=== PATIENT | female | born 1990 | race Caucasian/White ===

== ENCOUNTER 2016-04-23 15:23 | Inpatient (IN) | payer MEDICAID ==
--- NOTE | 2016-04-23 16:00 | L&D Flow Sheet ---
LD Flowsheet Datetime Report Generated by CPN: 04/23/2016 16:00 Datetime: 04/23/2016 15:49 Vital Signs NBP Sys/Jackie/Mean (mmHg): 128 (QS system process) : 66 (QS system process) : 91 (QS system process) Pulse: 88 (QS system process)
[2016-04-23 17:11] LABS: ABSOLUTE BASOPHILS # (AUTO) 0.1 10^3/uL (0.0-0.2); ABSOLUTE EOSINOPHILS # (AUTO) 0.1 10^3/uL (0.0-0.6); ABSOLUTE LYMPHOCYTES (AUTO) 1.5 10^3/uL (0.5-4.7); ABSOLUTE MONOCYTES (AUTO) 0.8 10^3/uL (0.1-1.4); ABSOLUTE NEUT (AUTO) 9.7 10^3/uL (1.7-8.2); BASOPHILS % (AUTO) 0.5 % (0-2); EOSINOPHILS % (AUTO) 0.7 % (0-6); HEMATOCRIT 34.8 % (36.0-47.0); HEMOGLOBIN 11.5 g/dL (12.0-15.5); HGB HCT DIFFERENCE -0.3; MEAN CORPUSCULAR HEMOGLOBIN 31.5 pg (27.0-33.4); MEAN CORPUSCULAR HGB CONC 33.1 g/dL (32.0-36.0); MEAN CORPUSCULAR VOLUME 95 fl (80-97); MONOCYTES % (AUTO) 6.9 % (3-13); RED BLOOD COUNT 3.65 10^6/uL (3.72-5.28); RED CELL DISTRIBUTION WIDTH 13.3 % (11.5-14.0); SEGMENTED NEUTROPHILS % (AUTO) 79.9 % (42-78); WHITE BLOOD COUNT 12.2 10^3/uL (4.0-10.5)
[2016-04-23] MEDS ORDERED: RINGERS SOLUTION,LACTATED 300 ML IV ONE (17:24)
[2016-04-23] MEDS ORDERED: DINOPROSTONE 10 MG VAGINAL INSERT.SR ONE (17:28)
[2016-04-23 17:38] LABS: APPEARANCE,URINE SLIGHTLY-CLOUDY; BILIRUBIN,URINE NEGATIVE (NEGATIVE); GLUCOSE, URINE NEGATIVE (NEGATIVE); KETONES,URINE 20 mg/dL (NEGATIVE); LEUKOCYTE ESTERASE,URINE LARGE (NEGATIVE); NITRITE,URINE NEGATIVE (NEGATIVE); PROTEIN,URINE NEGATIVE (NEGATIVE); URINE SPECIFIC GRAVITY 1.016; UROBILINOGEN,URINE NEGATIVE mg/dL (<2.0)
[2016-04-23 17:53] LABS: URINE BARBITURATES SCREEN NEGATIVE; URINE METHADONE SCREEN NEGATIVE; URINE OPIATES LOW NEGATIVE; URINE PHENCYCLIDINE SCREEN NEGATIVE
--- NOTE | 2016-04-23 18:01 | L&D Flow Sheet ---
LD Flowsheet Datetime Report Generated by CPN: 04/23/2016 18:00 Datetime: 04/23/2016 17:49 NBP Sys/Jackie/Mean (mmHg): 117 (QS system process) : 71 (QS system process) : 88 (QS system process) Pulse: 80 (QS system process) Datetime: 04/23/2016 17:30 Monitor Mode: External (Clif Baker RN) Frequency (min): 0 (Clif Baker RN) Resting Tone (Palpate): Relaxed (Clif Baker RN) Monitor Mode: External US (Clif Baker RN) FHR Baseline Rate : 130 (Clif Baker RN) Variability: Moderate 6-25 bpm (Clif Baker RN) Accelerations: 15X15 (Clif Baker RN) Decelerations: None (Clif Baker RN) Dilatation (cm): 2.0 (Clif Baker RN) Effacement (%): 50 (Clif aBker RN) Station: -1 (Clif Baker RN) Exam by: LARY De Guzman (Clif Baker, RN) Vaginal Bleeding: None (Clif Baker RN) Cervix, Consistency: Moderate (Clif Baker RN) Cervix, Position: Posterior (Clif Baker RN) Lie 'A': Longitudinal (Clif Baker RN) Cervical Ripening Agents: Cervidil (Clif Baker RN) IV/Blood Work: IV Infusing per Order (Clif Baker, RN) Procedures: Sterile Vag Exam (Clif Baker RN) Patient Position/Activity: Left Tilt; Semi-Fowlers (Clif Baker, LARY) Datetime: 04/23/2016 17:20 NBP Sys/Jackie/Mean (mmHg): 117 (QS system process) : 62 (QS system process) : 83 (QS system process) Pulse: 85 (QS system process) Datetime: 04/23/2016 17:00 Monitor Mode: External (Clif Baker, RN) Frequency (min): 0 (Clif Baker, RN) Resting Tone (Palpate): Relaxed (Clif Baker, RN) Monitor Mode: External US (Clif Baker, RN) FHR Baseline Rate : 130 (Clif Baker, RN) Variability: Moderate 6-25 bpm (Clif Baker, RN) Accelerations: 15X15 (Clif Baker, RN) Decelerations: None (Clif Baker, RN) IV/Blood Work: IV Infusing per Order (Clif Baker, RN) Patient Position/Activity: Left Tilt; Semi-Fowlers (Clif Baker, RN) Datetime: 04/23/2016 16:49 NBP Sys/Jackie/Mean (mmHg): 116 (QS system process) : 73 (QS system process) : 88 (QS system process) Pulse: 83 (QS system process) Datetime: 04/23/2016 16:40 I/O Interventions: Up to BR (Clif Baker, RN) Datetime: 04/23/2016 16:30 Monitor Mode: External (Clif Baker, RN) Frequency (min): 0 (Clif Baker RN) Resting Tone (Palpate): Relaxed (Clif Baker, RN) Monitor Mode: External US (Clif Baker, RN) FHR Baseline Rate : 120 (Clif Baker, RN) Variability: Moderate 6-25 bpm (Clif Baker, RN) Accelerations: 15X15 (Clif Baker, RN) Decelerations: None (Clif Baker, RN) Pain Presence: None/Denies (Clif Baker, RN) IV/Blood Work: IV Started; IV Bolus Started; New IV Bag Hung (Clif Baker, RN) Patient Position/Activity: Left Tilt; High Fowlers (Clif Baker, RN) Datetime: 04/23/2016 16:19 NBP Sys/Jackie/Mean (mmHg): 118 (QS system process) : 57 (QS system process) : 82 (QS system process) Pulse: 86 (QS system process) Datetime: 04/23/2016 16:00 Monitor Mode: External (Clif Baker RN) Frequency (min): 0 (Clif Baker RN) Resting Tone (Palpate): Relaxed (Clif Baker RN) Monitor Mode: External US (Clif Baker RN) FHR Baseline Rate : 130 (Clif Baker RN) Variability: Moderate 6-25 bpm (Clif Baker RN) Accelerations: 15X15 (Clif Baker RN) Decelerations: None (Clif Baker RN) Pain Scale: 0 (Clif Baker RN) Pain Presence: None/Denies (Clif Baker RN) Pain Relief Measures: Comfort Measures (Clif Baker RN) Vaginal Bleeding: None (Clif Baker RN) Level of Consciousness: Fully Conscious (Clif Baker RN) Headache: Denies (Clif Baker, RN) Nausea/Vomiting: Denies (Clif Baker, RN) RUQ Epigastric Pain: Denies (Clif Baker, RN) IV/Blood Work: Labs Drawn (Clif Baker RN) Patient Position/Activity: Left Tilt; Semi-Fowlers (Clif Baker, LARY) Comfort Measures: Family Support (Clif Baker RN) I/O Interventions: Clear Liquids Given (Clif Baker RN)
--- NOTE | 2016-04-23 20:00 | L&D Flow Sheet ---
LD Flowsheet Datetime Report Generated by CPN: 04/23/2016 20:00 Datetime: 04/23/2016 19:30 Monitor Mode: External; Palpation (Leticia Matt, RN) Frequency (min): 3-7 (Leticia Matt, RN) Quality: Mild (Leticia Matt, RN) Duration (sec): 50-120 (Leticia Matt, RN) Duration Criteria: Less than Two 120 Second Contractions (Leticia Matt, RN) Pattern: Normal: <= 5 Contractions in 10 Minutes (Leticia Matt, RN) Resting Tone (Palpate): Relaxed (Leticia Matt, RN) Monitor Mode: External US (Leticia Matt, RN) FHR Baseline Rate : 130 (Leticia Matt, RN) FHR Baseline Changes: No Baseline Change (Leticia Matt, RN) Variability: Moderate 6-25 bpm (Leticia Matt, RN) Accelerations: 15X15 (Leticia Matt, RN) Decelerations: None (Leticia Matt, RN) Datetime: 04/23/2016 19:20 NBP Sys/Jackie/Mean (mmHg): 119 (QS system process) : 62 (QS system process) : 84 (QS system process) Pulse: 86 (QS system process) Datetime: 04/23/2016 19:15 Level of Consciousness: Fully Conscious (Leticia Matt, RN) DTR's/Clonus: DTRs 2+; No Clonus (Leticia Matt, RN) Headache: Denies (Leticia Matt, RN) Breath Sounds, Left: Clear and Equal (Leticia Matt, RN) Breath Sounds, Right: Clear and Equal (Leticia Matt, RN) Nausea/Vomiting: Denies (Leticia Matt, RN) RUQ Epigastric Pain: Denies (Leticia Matt, RN) Datetime: 04/23/2016 19:00 Communication Comments: Report received Guillermina Baker RN and care assumed at this time (Leticia Matt, RN) Datetime: 04/23/2016 18:59 Monitor Mode: External (Clif Samuel, RN) Frequency (min): x1 (Clif Samuel, RN) Duration (sec): 60 (Clif Samuel, RN) Resting Tone (Palpate): Relaxed (Clif Samuel, RN) Monitor Mode: External US (Clif Samuel, RN) Variability: Moderate 6-25 bpm (Clif Samuel, RN) Accelerations: 15X15 (Clif Samuel, RN) Decelerations: None (Clif Samuel, RN) Communication: RN at Bedside; Report Given to @ Leticia Matt, RN (Clif Samuel, RN) Datetime: 04/23/2016 18:50 NBP Sys/Jackie/Mean (mmHg): 112 (QS system process) : 55 (QS system process) : 79 (QS system process) Pulse: 73 (QS system process) Datetime: 04/23/2016 18:39 Patient Position/Activity: Right Tilt; Semi-Fowlers (Christina Bellavance, RNC) Datetime: 04/23/2016 18:34 I/O Interventions: Up to BR (Christina Bellavance, RNC) Datetime: 04/23/2016 18:30 Monitor Mode: External (Christina Bellavance, RNC) Frequency (min): 0 (Christina Bellavance, RNC) Resting Tone (Palpate): Relaxed (Christina Bellavance, RNC) Monitor Mode: External US (Christina Bellavance, RNC) FHR Baseline Rate : 150 (Christina Bellavance, RNC) Variability: Moderate 6-25 bpm (Christina Bellavance, RNC) Accelerations: 15X15 (Christina Bellavance, RNC) Decelerations: None (Christina Bellavance, RNC) Patient Position/Activity: Left Tilt; Semi-Fowlers (Christina Bellavance, RNC) Datetime: 04/23/2016 18:19 NBP Sys/Jackie/Mean (mmHg): 117 (QS system process) : 71 (QS system process) : 90 (QS system process) Pulse: 82 (QS system process) Bedside Blood Glucose: 78 (QS system process) Datetime: 04/23/2016 18:00 Monitor Mode: External (Clif Baker RN) Frequency (min): 0 (Clif Baker RN) Resting Tone (Palpate): Relaxed (Clif Baker RN) Monitor Mode: External US (Clif Baker RN) FHR Baseline Rate : 120 (Clif Baker RN) Variability: Moderate 6-25 bpm (Clif Baker RN) Accelerations: 15X15 (Clif Baker RN) Decelerations: None (Clif Baker RN) Patient Position/Activity: Left Tilt; Semi-Fowlers (Clif Baker RN)
[2016-04-23] MEDS ORDERED: ZOLPIDEM TARTRATE 5 MG TABLET PO ONE (21:08)
[2016-04-23] MEDS ORDERED: ZOLPIDEM TARTRATE 5 MG TABLET ONE (21:09)
--- NOTE | 2016-04-23 22:01 | L&D Flow Sheet ---
LD Flowsheet Datetime Report Generated by CPN: 04/23/2016 22:00 Datetime: 04/23/2016 21:30 Monitor Mode: External (Leticia Matt, RN) Frequency (min): IREGG (Leticia Matt, RN) Quality: Mild (Leticia Matt, RN) Duration (sec): 40-90 (Leticia Matt, RN) Duration Criteria: Less than Two 120 Second Contractions (Leticia Matt, RN) Pattern: Normal: <= 5 Contractions in 10 Minutes (Leticia Matt, RN) Resting Tone (Palpate): Relaxed (Leitcia Matt, RN) Monitor Mode: External US (Leticia Matt, RN) FHR Baseline Rate : 120 (Leticia Matt, RN) Variability: Moderate 6-25 bpm (Leticia Matt, RN) Accelerations: 15X15 (Leticia Matt, RN) Decelerations: None (Leticia Matt, RN) Datetime: 04/23/2016 21:12 NBP Sys/Jackie/Mean (mmHg): 118 (QS system process) : 69 (QS system process) : 88 (QS system process) Pulse: 81 (QS system process) Pain Scale: 2 (Leticia Matt, RN) Pain Presence: Intermittent (Leticia Matt, RN) Pain Type: Contraction (Leticia Matt, RN) Pain Location: Abdomen (Elticia Matt, RN) Medication Comments: Ambien 10 mg PO x1 dose for sleep (Leticia Matt, RN) Datetime: 04/23/2016 21:00 Monitor Mode: External (Leticia Matt, RN) Frequency (min): 1-3 (Leticia Matt, RN) Quality: Mild (Leticia Matt, RN) Duration (sec): 40-90 (Leticia Matt, RN) Duration Criteria: Less than Two 120 Second Contractions (Leticia Matt, RN) Pattern: Normal: <= 5 Contractions in 10 Minutes (Leticia Matt, RN) Resting Tone (Palpate): Relaxed (Leticia Matt, RN) Monitor Mode: External US (Leticia Matt, RN) FHR Baseline Rate : 125 (Leticia Matt, RN) Variability: Moderate 6-25 bpm (Leticia Matt, RN) Accelerations: 15X15 (Leticia Matt, RN) Decelerations: None (Leticia Matt, RN) Datetime: 04/23/2016 20:40 Patient Care Comments: pt. denied any questions or concerns at this time (Leticia Matt, RN) Datetime: 04/23/2016 20:30 Monitor Mode: External; Palpation (Dacia Ring, RN) Frequency (min): 2-5 (Dacia Ring, RN) Quality: Mild (Dacia Ring, RN) Duration (sec): 40-120 (Dacia Ring, RN) Duration Criteria: Less than Two 120 Second Contractions (Dacia Ring, RN) Pattern: Normal: <= 5 Contractions in 10 Minutes (Dacia Ring, RN) Resting Tone (Palpate): Relaxed (Dacia Ring, RN) Monitor Mode: External US (Dacia Ring, RN) FHR Baseline Rate : 130 (Dacia Ring, RN) Variability: Moderate 6-25 bpm (Dacia Ring, RN) Accelerations: Prolonged (Dacia Ring, RN) Decelerations: None (Dacia Ring, RN) Datetime: 04/23/2016 20:22 I/O Interventions: Up to BR (Leticia Matt, RN) I/O Interventions: Up to BR (Dacia Ring, RN) Datetime: 04/23/2016 20:00 Monitor Mode: External; Palpation (Dacia Ring, RN) Frequency (min): 3-7 (Dacia Ring, RN) Quality: Mild (Dacia Ring, RN) Duration (sec): 50-120 (Dacia Ring, RN) Duration Criteria: Less than Two 120 Second Contractions (Dacia Ring, RN) Pattern: Normal: <= 5 Contractions in 10 Minutes (Dacia Ring, RN) Resting Tone (Palpate): Relaxed (Dacia Ring, RN) Monitor Mode: External US (Dacia Ring, RN) FHR Baseline Rate : 130 (Dacia Ring, RN) Variability: Moderate 6-25 bpm (Dacia Ring, RN) Accelerations: Prolonged (Dacia Ring, RN) Decelerations: None (Dacia Ring, RN)
[2016-04-23] MEDS: RINGERS SOLUTION,LACTATED 1,000 ML IV PRN (22:21)
[2016-04-24] MEDS ORDERED: PROMETHAZINE HCL INJ 25 MG/1 ML VIAL IV ONE (02:56)
[2016-04-24] MEDS ORDERED: NALBUPHINE HCL INJ 10 MG/1 ML AMPULE INJ ONE (02:56)
[2016-04-24] MEDS ORDERED: PROMETHAZINE HCL INJ 25 MG/1 ML VIAL ONE ×2 (03:01→18:50)
[2016-04-24] MEDS ORDERED: NALBUPHINE HCL INJ 10 MG/1 ML AMPULE ONE (03:02)
[2016-04-24] MEDS: DINOPROSTONE 10 MG VAGINAL INSERT.SR PV PRN ×3 (03:55→15:30)
[2016-04-24] MEDS ORDERED: OXYTOCIN/NORMAL SALINE 20 UNIT/1,000 ML RTUINJ ONE (05:52)
[2016-04-24] MEDS ORDERED: OXYTOCIN/NORMAL SALINE 20 UNIT/1,000 ML RTUINJ IV PRN (06:43)
--- NOTE | 2016-04-24 08:01 | L&D Flow Sheet ---
LD Flowsheet Datetime Report Generated by CPN: 04/24/2016 08:00 Datetime: 04/24/2016 07:59 NBP Sys/Jackie/Mean (mmHg): 115 (QS system process) : 58 (QS system process) : 83 (QS system process) Pulse: 82 (QS system process) LaborFlag: Antepartum (QS system process) Datetime: 04/24/2016 07:47 Respirations: 16 (Sagrario Anderson RN) Temperature (F): 98.4 (Sagrario Anderson RN) Temperature (C): 36.9 (QS system process) LaborFlag: Antepartum (QS system process) Datetime: 04/24/2016 07:46 Patient Care Comments: repositioned to right lateral (Sagrario Anderson RN) Datetime: 04/24/2016 07:45 NBP Sys/Jackie/Mean (mmHg): 125 (QS system process) : 57 (QS system process) : 82 (QS system process) Pulse: 94 (QS system process) Monitor Mode: External; Palpation (Sagrario Anderson RN) Frequency (min): 1.5-4 (Sagrario Anderson RN) Quality: Mild/Moderate (Sagrario Anderson RN) Duration (sec): 60-100 (Sagrario Anderson RN) Duration Criteria: Less than Two 120 Second Contractions (Sagrario Anderson RN) Pattern: Normal: <= 5 Contractions in 10 Minutes (Sagrario Anderson RN) Resting Tone (Palpate): Relaxed (Sagrario Anderson RN) Monitor Mode: External US (Sagrario Anderson RN) FHR Baseline Rate : 130 (Sagrario Baidy, RN) Variability: Moderate 6-25 bpm (Sagrario Baidy, RN) Accelerations: 15X15 (Sagrario Baidy, RN) Decelerations: Late (Sagrario Anderson, RN) Pitocin (milliunit): Pitocin Remains (milliunits) @ 2 (Sagrario Anderson, RN) LaborFlag: Antepartum (QS system process) Datetime: 04/24/2016 07:30 Monitor Mode: External; Palpation (Sagrario Anderson RN) Frequency (min): 2-3 (Sagrario Anderson, RN) Quality: Mild/Moderate (Sagrario Anderson, RN) Duration (sec): 60-100 (Sagrario Anderson, RN) Duration Criteria: Less than Two 120 Second Contractions (Sagrario Anderson, RN) Pattern: Normal: <= 5 Contractions in 10 Minutes (Sagrario Anderson, RN) Resting Tone (Palpate): Relaxed (Sagrario Anderson, RN) Monitor Mode: External US (Sagrario Anderson, RN) FHR Baseline Rate : 125 (Sagrario Anderson, RN) Variability: Moderate 6-25 bpm (Sagrario Baidy, RN) Accelerations: 15X15 (Sagrario Baidy, RN) Decelerations: None (Sagrario Anderson, RN) Pitocin (milliunit): Pitocin Started (milliunits) @ 2 (Sagrario Baiadiel, RN) Datetime: 04/24/2016 07:29 NBP Sys/Jackie/Mean (mmHg): 115 (QS system process) : 60 (QS system process) : 80 (QS system process) Pulse: 74 (QS system process) LaborFlag: Antepartum (QS system process) Datetime: 04/24/2016 07:20 Monitor Mode: External; Palpation (Leticia Matt, RN) Frequency (min): 2-4 (Leticia Matt, RN) Quality: Mild/Moderate (Leticia Matt, RN) Duration (sec): 60-90 (Leticia Matt, RN) Duration Criteria: Less than Two 120 Second Contractions (Leticia Matt, RN) Pattern: Normal: <= 5 Contractions in 10 Minutes (Leticia Matt, RN) Resting Tone (Palpate): Relaxed (Leticia Matt, RN) Datetime: 04/24/2016 07:16 Monitor Interventions for UA: [place] Adjusted (Sagrario Baidy, RN) Datetime: 04/24/2016 07:14 Level of Consciousness: Fully Conscious (Sagrario Baidy, RN) DTR's/Clonus: DTRs 2+; No Clonus (Sagrario Baidy, RN) Headache: Denies (Sagrario Baidy, RN) Breath Sounds, Left: Clear and Equal (Sagrario Baidy, RN) Breath Sounds, Right: Clear and Equal (Sagrario Baidy, RN) Nausea/Vomiting: Denies (Sagrario Baidy, RN) RUQ Epigastric Pain: Denies (Sagrario Baidy, RN) Datetime: 04/24/2016 07:10 Communication Comments: Report passed to BBro Anderson, RN and care relinquished at this time (Leticia Matt, RN) Datetime: 04/24/2016 06:59 NBP Sys/Jackie/Mean (mmHg): 112 (QS system process) : 71 (QS system process) : 86 (QS system process) Pulse: 76 (QS system process) LaborFlag: Antepartum (QS system process) Datetime: 04/24/2016 06:57 Patient Care Comments: all pt. questions and concerns answered at this time (Leticia Matt, RN) Datetime: 04/24/2016 06:31 NBP Sys/Jackie/Mean (mmHg): 118 (QS system process) : 70 (QS system process) : 88 (QS system process) Pulse: 76 (QS system process) Temperature (F): 98.2 (Leticia Rodriguezco, RN) Temperature (C): 36.8 (QS system process) Temperature Route: Oral (Leticia Gutierrez, RN) Pain Scale: 1 (Leticia Matt, RN) Pain Presence: Intermittent (Leticia Rodriguezco, RN) Pain Type: Cramping (Leticia Matt, RN) Pain Location: Abdomen (Leticia Rodriguezco, RN) LaborFlag: Antepartum (QS system process) Datetime: 04/24/2016 06:00 Bedside Blood Glucose: 81 (QS system process) LaborFlag: Antepartum (QS system process) Datetime: 04/24/2016 05:40 Pain Assessment Comments: Towels, toiletries, and gown provided along with a light breakfast (Leticia Gutierrez, RN) LaborFlag: Antepartum (QS system process) Datetime: 04/24/2016 05:35 Monitor Mode: External (Leticia Matt, RN) Frequency (min): x2 (Leticia Matt, RN) Quality: Mild/Moderate (Leticia Matt, RN) Duration (sec): 50-110 (Leticia Matt, RN) Duration Criteria: Less than Two 120 Second Contractions (Leticia Matt, RN) Pattern: Normal: <= 5 Contractions in 10 Minutes (Leticia Matt, RN) Resting Tone (Palpate): Relaxed (Leticia Matt, RN) Monitor Mode: External US (Leticia Matt, RN) FHR Baseline Rate : 120 (Leticia Matt, RN) Variability: Moderate 6-25 bpm (Leticia Matt, RN) Accelerations: 15X15 (Leticia Matt, RN) Decelerations: None (Leticia Matt, RN) Pain Scale: 2 (Leticia Matt, RN) Pain Presence: Intermittent (Leticia Matt, RN) Pain Type: Contraction (Leticia Matt, RN) Pain Location: Abdomen (Leticia Matt, RN) Pain Assessment Comments: pt. states her pain has decreased after medication, denies any needs at this time. Montiors turned off at this time for pt. to shower and eat a light breakfast per MD order (Leticia Matt, RN) LaborFlag: Antepartum (QS system process) Datetime: 04/24/2016 05:34 Medication Comments: cervidil removed (Leticia Matt, RN) Datetime: 04/24/2016 05:30 Monitor Mode: External (Leticia Matt, RN) Frequency (min): 1.5-7 (Leticia Matt, RN) Quality: Mild/Moderate (Leticia Matt, RN) Duration (sec): 40-90 (Leticia Matt, RN) Duration Criteria: Less than Two 120 Second Contractions (Leticia Matt, RN) Pattern: Normal: <= 5 Contractions in 10 Minutes (Leticia Matt, RN) Resting Tone (Palpate): Relaxed (Leticia Matt, RN) Monitor Mode: External US (Leticia Matt, RN) FHR Baseline Rate : 115 (Lteicia Matt, RN) Variability: Moderate 6-25 bpm (Leticia Matt, RN) Accelerations: 10X10 (Leticia Matt, RN) Decelerations: None (Leticia Matt, RN) Datetime: 04/24/2016 05:19 I/O Interventions: Up to BR (Leticia Matt, RN) Datetime: 04/24/2016 05:00 Monitor Mode: External (Leticia Matt, RN) Frequency (min): 1.5-4 (Leticia Matt, RN) Quality: Mild/Moderate (Leticia Matt, RN) Duration (sec): 50-90 (Leticia Matt, RN) Duration Criteria: Less than Two 120 Second Contractions (Leticia Matt, RN) Pattern: Normal: <= 5 Contractions in 10 Minutes (Leticia Matt, RN) Resting Tone (Palpate): Relaxed (Leticia Matt, RN) Monitor Mode: External US (Leticia Matt, RN) FHR Baseline Rate : 115 (Leticia Matt, RN) Variability: Moderate 6-25 bpm (Leticia Matt, RN) Accelerations: 15X15 (Leticia Matt, RN) Decelerations: None (Leticia Matt, RN) Datetime: 04/24/2016 04:30 Monitor Mode: External (Leticia Matt, RN) Frequency (min): IREGG (Leticia Matt, RN) Quality: Mild/Moderate (Leticia Matt, RN) Duration (sec): 50-60 (Leticia Matt, RN) Duration Criteria: Less than Two 120 Second Contractions (Leticia Matt, RN) Pattern: Normal: <= 5 Contractions in 10 Minutes (Leticia Matt, RN) Resting Tone (Palpate): Relaxed (Leticia Matt, RN) Contraction Comments: irritability noted (Leticia Matt, RN) Monitor Mode: External US (Leticia Matt, RN) FHR Baseline Rate : 115 (Leticia Matt, RN) Variability: Moderate 6-25 bpm (Leticia Matt, RN) Accelerations: None (Leticia Matt, RN) Decelerations: None (Leticia Matt, RN) Datetime: 04/24/2016 04:00 Monitor Mode: External (Leticia Matt, RN) Frequency (min): 1.5-8 (Leticia Matt, RN) Quality: Mild/Moderate (Leticia Matt, RN) Duration (sec): 30-60 (Leticia Matt, RN) Duration Criteria: Less than Two 120 Second Contractions (Leticia Matt, RN) Pattern: Normal: <= 5 Contractions in 10 Minutes (Leticia Matt, RN) Resting Tone (Palpate): Relaxed (Leticia Matt, RN) Monitor Mode: External US (Leticia Matt, RN) FHR Baseline Rate : 115 (Leticia Matt, RN) Variability: Moderate 6-25 bpm (Leticia Matt, RN) Accelerations: None (Leticia Matt, RN) Decelerations: None (Leticia Matt, RN) Datetime: 04/24/2016 03:51 I/O Interventions: Up to BR (Leticia Matt, RN) Datetime: 04/24/2016 03:32 Pain Coping: Sleeping (Leticia Matt, RN) Datetime: 04/24/2016 03:30 Monitor Mode: External (Leticia Matt, RN) Quality: Mild/Moderate (Leticia Matt, RN) Pattern: Normal: <= 5 Contractions in 10 Minutes (Leticia Matt, RN) Contraction Comments: unable to determine, toco adjusted (Leticia Matt, RN) Monitor Mode: External US (Leticia Matt, RN) FHR Baseline Rate : 120 (Leticia Matt, RN) Variability: Moderate 6-25 bpm (Leticia Matt, RN) Accelerations: 15X15 (Leticia Matt, RN) Decelerations: None (Leticia Matt, RN) Datetime: 04/24/2016 03:29 Monitor Interventions for UA: [place] Adjusted (Leticia Matt, RN) Datetime: 04/24/2016 03:14 Monitor Interventions for UA: [place] Adjusted (Leticia Matt, RN) Datetime: 04/24/2016 03:08 Analgesics/Sedatives: Nubain (mg) @ 10; Phenergan (mg) @ 12.5 (Leticia Matt, RN) Datetime: 04/24/2016 03:00 Monitor Mode: External; Palpation (Leticia Matt, RN) Frequency (min): 1.5-3 (Leticia Matt, RN) Quality: Mild/Moderate (Leticia Matt, RN) Duration (sec): 50-80 (Leticia Matt, RN) Duration Criteria: Less than Two 120 Second Contractions (Leticia Matt, RN) Pattern: Normal: <= 5 Contractions in 10 Minutes (Leticia Matt, RN) Resting Tone (Palpate): Relaxed (Leticia Matt, RN) Monitor Mode: External US (Leticia Matt, RN) FHR Baseline Rate : 120 (Leticia Matt, RN) Variability: Moderate 6-25 bpm (Leticia Matt, RN) Accelerations: 15X15 (Leticia Matt, RN) Decelerations: None (Leticia Matt, RN) Datetime: 04/24/2016 02:56 Communication Comments: Dr. Gold called and notified of pt. SVE and request for IV pain medication. New orders received for Nubain 10 mg IV push x1 dose and phernergan 12.5 mg IV push x1 at this time. If pt. not in active labor when cervidil comes out, pt. may shower and have a light breakfast (Leticia Matt, RN) Datetime: 04/24/2016 02:55 Monitor Interventions for UA: [place] Adjusted (Leticia Matt, RN) Datetime: 04/24/2016 02:54 Dilatation (cm): 2.5 (Leticia Matt, RN) Effacement (%): 70 (Leticia Gutierrez, RN) Station: -1 (Leticia Gutierrez, LARY) Exam by: Hayden Gutierrez RN (Leticia Gutierrez RN) Vaginal Bleeding: None (Leticia Gutierrez, RN) Cervix, Consistency: Soft (Leticia Gutierrez, RN) Cervix, Position: Posterior (Leticia Gutierrez, RN) Datetime: 04/24/2016 02:50 Pain Scale: 4 (Leticia Gutierrez RN) Pain Presence: Intermittent (Leticia Gutierrez RN) Pain Type: Contraction (Leticia Gutierrez, RN) Pain Location: Abdomen (Leticia Gutierrez RN) Pain Coping: Requesting Pain Medication or Epidural (Leticia Gutierrez RN) Patient Position/Activity: Right Lateral (Leticia Gutierrez, RN) LaborFlag: Antepartum (QS system process) Datetime: 04/24/2016 02:30 Monitor Mode: External (Leticia Gutierrez RN) Frequency (min): IREGG (Leticia Matt, RN) Quality: Mild/Moderate (Leticia Matt, RN) Duration (sec): 40-70 (Leticia Matt, RN) Duration Criteria: Less than Two 120 Second Contractions (Leticia Matt, RN) Pattern: Tachysystole: > 5 Contractions in 10 Minutes (Leticia Matt, RN) Resting Tone (Palpate): Relaxed (Leticia Matt, RN) Monitor Mode: External US (Leticia Matt, RN) FHR Baseline Rate : 120 (Leticia Matt, RN) Variability: Moderate 6-25 bpm (Leticia Matt, RN) Accelerations: 15X15 (Leticia Matt, RN) Decelerations: None (Leticia Matt, RN) Datetime: 04/24/2016 02:24 Monitor Interventions for FHR: Ultrasound Adjusted (Leticia Matt, RN) Datetime: 04/24/2016 02:23 Monitor Interventions for FHR: Ultrasound Adjusted (Leticia Matt, RN) Comments: RN at bedside (Leticia Matt, RN) Datetime: 04/24/2016 02:00 Monitor Mode: External (Leticia Matt, RN) Frequency (min): 1.5-3 (Leticia Matt, RN) Quality: Mild/Moderate (Leticia Matt, RN) Duration (sec): 40-70 (Leticia Matt, RN) Duration Criteria: Less than Two 120 Second Contractions (Leticia Matt, RN) Pattern: Normal: <= 5 Contractions in 10 Minutes (Leticia Matt, RN) Resting Tone (Palpate): Relaxed (Leticia Matt, RN) Monitor Mode: External US (Leticia Matt, RN) FHR Baseline Rate : 125 (Leticia Matt, RN) Variability: Moderate 6-25 bpm (Leticia Matt, RN) Accelerations: 15X15 (Leticia Matt, RN) Decelerations: None (Leticia Matt, RN) Datetime: 04/24/2016 01:57 Patient Position/Activity: Left Lateral (Leticia Matt, RN) Datetime: 04/24/2016 01:48 Pain Scale: 3 (Leticia Matt, RN) Pain Presence: Intermittent (Leticia Matt, RN) Pain Type: Contraction (Leticia Matt, RN) Pain Location: Abdomen (Leticia Matt, RN) Pain Assessment Comments: pt. able to talk through ctn's, states her pain is getting worse (Leticia Matt, RN) I/O Interventions: Up to BR (Leticia Matt, RN) LaborFlag: Antepartum (QS system process) Datetime: 04/24/2016 01:42 Monitor Interventions for FHR: Ultrasound Adjusted (Leticia Matt, RN) Datetime: 04/24/2016 01:30 Monitor Mode: External; Palpation (Leticia Matt, RN) Frequency (min): IREGG (Leticia Matt, RN) Quality: Mild/Moderate (Leticia Matt, RN) Duration (sec): 40-90 (Leticia Matt, RN) Duration Criteria: Less than Two 120 Second Contractions (Leticia Matt, RN) Pattern: Normal: <= 5 Contractions in 10 Minutes (Leticia Matt, RN) Resting Tone (Palpate): Relaxed (Leticia Matt, RN) Monitor Mode: External US (Leticia Matt, RN) FHR Baseline Rate : 125 (Leticia Matt, RN) Variability: Moderate 6-25 bpm (Leticia Matt, RN) Accelerations: 15X15 (Leticia Matt, RN) Decelerations: None (Leticia Matt, RN) Datetime: 04/24/2016 01:00 Monitor Mode: External (Leticia Matt, RN) Frequency (min): IREGG (Leticia Matt, RN) Quality: Mild (Leticia Matt, RN) Duration (sec): 30-60 (Leticia Matt, RN) Duration Criteria: Less than Two 120 Second Contractions (Leticia Matt, RN) Pattern: Normal: <= 5 Contractions in 10 Minutes (Leticia Matt, RN) Resting Tone (Palpate): Relaxed (Leticia Matt, RN) Monitor Mode: External US (Leticia Matt, RN) FHR Baseline Rate : 125 (Leticia Matt, RN) Variability: Moderate 6-25 bpm (Leticia Matt, RN) Accelerations: 15X15 (Leticia Matt, RN) Decelerations: None (Leticia Matt, RN) Datetime: 04/24/2016 00:33 Patient Care Comments: pt. denies needs at this time (Leticia Matt, RN) Datetime: 04/24/2016 00:30 Monitor Mode: External (Leticia Matt, RN) Frequency (min): 1.5-2 (Leticia Matt, RN) Quality: Mild (Leticia Matt, RN) Duration (sec): 50-90 (Leticia Matt, RN) Duration Criteria: Less than Two 120 Second Contractions (Leticia Matt, RN) Pattern: Normal: <= 5 Contractions in 10 Minutes (Leticia Matt, RN) Resting Tone (Palpate): Relaxed (Leticia Matt, RN) Monitor Mode: External US (Leticia Matt, RN) FHR Baseline Rate : 125 (Leticia Matt, RN) Variability: Moderate 6-25 bpm (Leticia Matt, RN) Accelerations: 15X15 (Leticia Matt, RN) Decelerations: None (Leticia Matt, RN) I/O Interventions: Up to BR (Leticia Matt, RN) Datetime: 04/24/2016 00:00 Monitor Mode: External (Leticia Matt, RN) Quality: Mild (Leticia Matt, RN) Duration Criteria: Less than Two 120 Second Contractions (Leticia Matt, RN) Pattern: Normal: <= 5 Contractions in 10 Minutes (Leticia Matt, RN) Resting Tone (Palpate): Relaxed (Leticia Matt, RN) Contraction Comments: irritability noted (Leticia Matt, RN) Monitor Mode: External US (Leticia Matt, RN) FHR Baseline Rate : 125 (Leticia Matt, RN) Variability: Moderate 6-25 bpm (Leticia Matt, RN) Accelerations: 15X15 (Leticia Matt, RN) Decelerations: None (Leticia Matt, RN) Datetime: 04/23/2016 23:47 Monitor Interventions for FHR: Ultrasound Adjusted (Leticia Matt, RN) Datetime: 04/23/2016 23:41 Patient Position/Activity: Left Lateral (Leticia Matt, RN) Datetime: 04/23/2016 23:30 Monitor Mode: External (Leticia Matt, RN) Frequency (min): 1.5-4 (Leticia Matt, RN) Quality: Mild (Leticia Matt, RN) Duration (sec): 40-70 (Leticia Matt, RN) Duration Criteria: Less than Two 120 Second Contractions (Leticia Matt, RN) Pattern: Normal: <= 5 Contractions in 10 Minutes (Leticia Matt, RN) Resting Tone (Palpate): Relaxed (Leticia Matt, RN) Monitor Mode: External US (Leticia Matt, RN) FHR Baseline Rate : 125 (Leticia Matt, RN) Variability: Moderate 6-25 bpm (Leticia Matt, RN) Accelerations: 15X15 (Leticia Matt, RN) Decelerations: None (Leticia Matt, RN) Datetime: 04/23/2016 23:00 Monitor Mode: External (Leticia Matt, RN) Frequency (min): 3-6 (Leticia Matt, RN) Quality: Mild (Leticia Matt, RN) Duration (sec): 50-70 (Leticia Matt, RN) Duration Criteria: Less than Two 120 Second Contractions (Leticia Matt, RN) Pattern: Normal: <= 5 Contractions in 10 Minutes (Leticia Matt, RN) Resting Tone (Palpate): Relaxed (Leticia Matt, RN) Monitor Mode: External US (Leticia Matt, RN) FHR Baseline Rate : 120 (Leticia Matt, RN) Variability: Moderate 6-25 bpm (Leticia Matt, RN) Accelerations: 15X15 (Leticia Matt, RN) Decelerations: None (Leticia Matt, RN) Datetime: 04/23/2016 22:38 Monitor Interventions for FHR: Ultrasound Adjusted (Leticia Matt, RN) Datetime: 04/23/2016 22:35 Monitor Interventions for FHR: Ultrasound Adjusted (Leticia Matt, RN) Comments: RN at bedside (Leticia Matt, RN) Datetime: 04/23/2016 22:30 Monitor Mode: External (Leticia Matt, RN) Frequency (min): 1.5-3 (Leticia Matt, RN) Quality: Mild (Leticia Matt, RN) Duration (sec): 40-80 (Leticia Matt, RN) Duration Criteria: Less than Two 120 Second Contractions (Leticia Matt, RN) Pattern: Normal: <= 5 Contractions in 10 Minutes (Leticia Matt, RN) Resting Tone (Palpate): Relaxed (Leticia Matt, RN) Monitor Mode: External US (Leticia Matt, RN) FHR Baseline Rate : 125 (Leticia Matt, RN) Variability: Moderate 6-25 bpm (Leticia Matt, RN) Accelerations: 15X15 (Leticia Matt, RN) Decelerations: None (Leticia Matt, RN) Datetime: 04/23/2016 22:21 IV/Blood Work: IV Infusing per Order; New IV Bag Hung (Leticia Gutierrez RN) Patient Care Comments: LR to 125 ml/hr (Leticia Gutierrez, LARY) Datetime: 04/23/2016 22:17 Pain Scale: 3 (Leticia Gutierrez RN) Pain Presence: Intermittent (Leticia Gutierrez RN) Pain Type: Contraction (Leticia Gutierrez RN) Pain Location: Back (Leticia Gutierrez RN) Pain Assessment Comments: hot pack provided (Leticia Gutierrez RN) I/O Interventions: Up to BR (Leticia Gutierrez RN) LaborFlag: Antepartum (QS system process) Datetime: 04/23/2016 22:00 Monitor Mode: External (Leticia Matt, RN) Frequency (min): 2-4 (Leticia Matt, RN) Quality: Mild (Leticia Matt, RN) Duration (sec): 40-70 (Leticia Matt, RN) Duration Criteria: Less than Two 120 Second Contractions (Leticia Matt, RN) Pattern: Normal: <= 5 Contractions in 10 Minutes (Leticia Matt, RN) Resting Tone (Palpate): Relaxed (Leticia Matt, RN) Contraction Comments: irritability noted (Leticia Matt, RN) Monitor Mode: External US (Leticia Matt, RN) FHR Baseline Rate : 125 (Leticia Matt, RN) Variability: Moderate 6-25 bpm (Leticia Matt, RN) Accelerations: 15X15 (Leticia Matt, RN) Decelerations: None (Leticia Matt, RN)
--- NOTE | 2016-04-24 08:42 | L&D Progress Notes ---
PROGRESS NOTES Datetime Report Generated by CPN: 04/24/2016 08:42 PROGRESS NOTE Procedures: Artificial ROM Plan: Continue Present Management Comment: if inadequate ctx pattern will resume pit, epidural when desires [place] Amniotic Fluid Color: Clear FETUS A Monitoring: External US FHR Comments: had late decel intermittently on pit 2 mu now cat 1 with pit off : 40.6 SIGNATURE SIGNATURE: [id number] Signature: with User ID: [email or web address]
[2016-04-24] MEDS ORDERED: BUPIVACAINE HCL 0.25 % INJ/PF (2.5 MG/1 ML) 30 ML VIAL INFIL ONE (09:02)
[2016-04-24] MEDS ORDERED: FENTANYL CITRATE INJ/PF 100 MCG/2 ML AMPUL ONE (09:11)
[2016-04-24] MEDS ORDERED: EPHEDRINE SULFATE INJ 50 MG/1 ML AMPULE ONE (09:11)
[2016-04-24] MEDS ORDERED: PHENYLEPHRINE HCL INJ/PF 10 MG/1 ML SDV ONE (09:12)
[2016-04-24] MEDS ORDERED: FENTANYL/BUPIVACAINE/NS/PF 200 MCG/100 ML RTUINJ EPI ONE (09:12)
[2016-04-24] MEDS ORDERED: BUPIVACAINE HCL 0.25 % INJ/PF (2.5 MG/1 ML) 30 ML VIAL ONE (09:12)
[2016-04-24] MEDS: RINGERS SOLUTION,LACTATED 1,000 ML IV PRN ×2 (09:17→11:14)
--- NOTE | 2016-04-24 10:01 | L&D Flow Sheet ---
LD Flowsheet Datetime Report Generated by CPN: 04/24/2016 10:00 Datetime: 04/24/2016 09:59 Pulse: 98 (QS system process) SpO2 (%): 89 (QS system process) LaborFlag: Antepartum (QS system process) Datetime: 04/24/2016 09:58 NBP Sys/Jackie/Mean (mmHg): 130 (QS system process) : 60 (QS system process) : 73 (QS system process) Pulse: 101 (QS system process) LaborFlag: Antepartum (QS system process) Datetime: 04/24/2016 09:57 Pulse: 94 (QS system process) SpO2 (%): 98 (QS system process) Epidural Procedure: Loading Dose (Sagrario Anderson, RN) LaborFlag: Antepartum (QS system process) Datetime: 04/24/2016 09:56 NBP Sys/Jackie/Mean (mmHg): 133 (QS system process) : 63 (QS system process) : 91 (QS system process) Pulse: 83 (QS system process) Epidural Procedure: Cath Placed (Sagrario Anderson, RN) Epidural Procedure: Test Dose (Sagrario Anderson, RN) LaborFlag: Antepartum (QS system process) Datetime: 04/24/2016 09:52 Pulse: 89 (QS system process) SpO2 (%): 98 (QS system process) LaborFlag: Antepartum (QS system process) Datetime: 04/24/2016 09:47 Pulse: 92 (QS system process) SpO2 (%): 97 (QS system process) LaborFlag: Antepartum (QS system process) Datetime: 04/24/2016 09:44 NBP Sys/Jackie/Mean (mmHg): 131 (QS system process) : 85 (QS system process) : 105 (QS system process) Pulse: 85 (QS system process) LaborFlag: Antepartum (QS system process) Datetime: 04/24/2016 09:42 Pulse: 100 (QS system process) SpO2 (%): 98 (QS system process) Epidural Positioning: Sitting (Sagrario Adnerson RN) LaborFlag: Antepartum (QS system process) Datetime: 04/24/2016 09:25 IV/Blood Work: New IV Bag Hung (Sagrario Anderson RN) Datetime: 04/24/2016 09:15 Monitor Mode: External; Palpation (Sagrario Anderson RN) Frequency (min): 3-5 (Sagrario Anderson RN) Quality: Moderate (Sagrario Anderson RN) Duration (sec): 70-140 (Sagrario Anderson RN) Duration Criteria: More than Two 120 Second or Greater Contractions (Sagrario Anderson RN) Pattern: Normal: <= 5 Contractions in 10 Minutes (Sagrario Anderson, RN) Resting Tone (Palpate): Relaxed (Sagrario Anderson, RN) Monitor Mode: External US (Sagrario Anderson RN) FHR Baseline Rate : 125 (Sagrario Anderson RN) Variability: Moderate 6-25 bpm (Sagrario Anderson, RN) Accelerations: None (Sagrario Anderson, RN) Decelerations: None (Sagrario Anderson, RN) Datetime: 04/24/2016 09:14 NBP Sys/Jackie/Mean (mmHg): 122 (QS system process) : 76 (QS system process) : 91 (QS system process) Pulse: 81 (QS system process) LaborFlag: Antepartum (QS system process) Datetime: 04/24/2016 09:00 Monitor Mode: External; Palpation (Sagrario Anderson RN) Frequency (min): 2-3 (Sagrario Anderson, RN) Quality: Moderate (Sagrario Anderson, RN) Duration (sec): 60-120 (Sagrario Anderson RN) Duration Criteria: More than Two 120 Second or Greater Contractions (Sagrario Anderson RN) Pattern: Normal: <= 5 Contractions in 10 Minutes (Sagrario Anderson RN) Resting Tone (Palpate): Relaxed (Sagrario Anderson RN) Monitor Mode: External US (Sagrario Anderson RN) FHR Baseline Rate : 125 (Sagrario Anderson RN) Variability: Moderate 6-25 bpm (Sagrario Anderson RN) Accelerations: None (Sagrario Anderson RN) Decelerations: None (Sagrario Anderson RN) Datetime: 04/24/2016 08:59 NBP Sys/Jackie/Mean (mmHg): 125 (QS system process) : 88 (QS system process) : 103 (QS system process) Pulse: 85 (QS system process) Patient Care Comments: pt requesting epidural, IV bolus started. (Sagrario Anderson RN) LaborFlag: Antepartum (QS system process) Datetime: 04/24/2016 08:58 Pain Scale: 5 (Sagrario Anderson RN) Pain Presence: Intermittent (Sagrario Anderson RN) Pain Type: Contraction (Sagrario Anderson RN) Pain Location: Abdomen (Sagrario Baidy, RN) LaborFlag: Antepartum (QS system process) Datetime: 04/24/2016 08:45 Monitor Mode: External; Palpation (Sagrario Anderson, RN) Frequency (min): 1.5-3 (Sagrario Anderson, RN) Quality: Mild/Moderate (Sagrario Baiadiel, RN) Duration (sec): 60-90 (Sagrario Justin, RN) Duration Criteria: Less than Two 120 Second Contractions (Sagrario Anderson, RN) Pattern: Normal: <= 5 Contractions in 10 Minutes (Sagrario Anderson, RN) Resting Tone (Palpate): Relaxed (Sagrario Baiadiel, RN) Monitor Mode: External US (Sagrario Anderson, RN) FHR Baseline Rate : 125 (Sagrario Anderson, RN) FHR Baseline Changes: Return to Previous Baseline (Sagrario Baiadiel, RN) Variability: Minimal - Undetectable to <=5 bpm (Sagrario Baidy, RN) Accelerations: 15X15 (Sagrario Baidy, RN) Decelerations: None (Sagrario Anderson, RN) Datetime: 04/24/2016 08:37 Monitor Interventions for UA: [place] Adjusted (Sagrario Anderson RN) Patient Position/Activity: Tailors (Sagrario Anderson RN) Datetime: 04/24/2016 08:36 Communication Comments: Orders received for epidural prn for pain. (Sagrario Anderson RN) Datetime: 04/24/2016 08:34 Dilatation (cm): 3.5 (Sagrario Anderson RN) Effacement (%): 90 (Sagrario Anderson RN) Station: 0 (Sagrario Anderson RN) Exam by: Dr Marques (Sagrario Anderson RN) Membrane Status: Ruptured (Sagrario Anderson RN) Membranes Rupture Method: Artificial (Sagrario Anderson RN) Amniotic Fluid Color: Clear (Sagrario Anderson RN) Amniotic Fluid Amount: Small (Sagrario Anderson RN) Communication Comments: Dr Marques at bedside to perform SVE and AROM (Sagrario Anderson RN) Datetime: 04/24/2016 08:32 I/O Interventions: Up to BR (Sagrario Baidy, RN) Datetime: 04/24/2016 08:30 Monitor Mode: External; Palpation (Sagrario Anderson, RN) Frequency (min): 2-3 (Sagrario Anderson, RN) Quality: Mild/Moderate (Sagrario Baidy, RN) Duration (sec): 60-90 (Sagrario Baidy, RN) Duration Criteria: Less than Two 120 Second Contractions (Sagrario Baidy, RN) Pattern: Normal: <= 5 Contractions in 10 Minutes (Sagrario Baidy, RN) Resting Tone (Palpate): Relaxed (Sagrario Baiadiel, RN) Monitor Mode: External US (Sagrario Anderson, RN) FHR Baseline Rate : 145 (Sagrario Baidy, RN) Variability: Moderate 6-25 bpm (Sagrario Baidy, RN) Accelerations: 15X15 (Sagrario Baidy, RN) Decelerations: Late (Sagrario Baidy, RN) Datetime: 04/24/2016 08:29 NBP Sys/Jackie/Mean (mmHg): 112 (QS system process) : 66 (QS system process) : 83 (QS system process) Pulse: 78 (QS system process) Monitor Interventions for UA: [place] Adjusted (Sagrario Anderson RN) Monitor Interventions for FHR: Ultrasound Adjusted (Sagrario Anderson, LARY) LaborFlag: Antepartum (QS system process) Datetime: 04/24/2016 08:21 Monitor Interventions for FHR: Ultrasound Adjusted (Sagrario Justin, RN) Datetime: 04/24/2016 08:20 Patient Care Comments: repositioned to right lateral (Sagrario Anderson, RN) Datetime: 04/24/2016 08:16 NBP Sys/Jackie/Mean (mmHg): 101 (QS system process) : 59 (QS system process) : 74 (QS system process) Pulse: 74 (QS system process) Monitor Interventions for UA: [place] Adjusted (Sagrario Anderson RN) LaborFlag: Antepartum (QS system process) Datetime: 04/24/2016 08:15 Monitor Mode: External; Palpation (Sagrario Anderson RN) Frequency (min): 1.5-3 (Sagrario Anderson RN) Quality: Mild/Moderate (Sagrario Anderson RN) Duration (sec): 60-90 (Sagrario Anderson RN) Duration Criteria: Less than Two 120 Second Contractions (Sagrario Anderson RN) Pattern: Normal: <= 5 Contractions in 10 Minutes (Sagrario Anderson RN) Resting Tone (Palpate): Relaxed (Sagrario Adnerson RN) Monitor Mode: External US (Sagrario Anderson RN) FHR Baseline Rate : 145 (Sagrario Anderson RN) Variability: Moderate 6-25 bpm (Sagrario Anderson RN) Accelerations: 15X15 (Sagrario Baidy, RN) Decelerations: Late (Sagrario Baidy, RN) Datetime: 04/24/2016 08:12 Monitor Interventions for UA: [place] Adjusted (Sagrario Baidy, RN) Datetime: 04/24/2016 08:11 Pitocin (milliunit): Pitocin Discontinued (Sagrario Baidy, RN) Patient Care Comments: pt rolled to back, repositioned to left lateral (Sagrario Baidy, RN) Datetime: 04/24/2016 08:08 Strip Reviewed by: Dr Neislen (Sagrario Baidy, LARY) Communication: Report Given to @ Dr Marques (Sagrario Anderson, LARY) Notification Reason: Status Update; Status; Labor Status; Membrane Status; Uterine Activity (Sagrario Anderson RN) Communication Comments: pitocin @ 2 units (Sagrario Anderson RN) Datetime: 04/24/2016 08:00 Monitor Mode: External; Palpation (Sagrario Anderson RN) Frequency (min): 1.5-3 (Sagrario Anderson RN) Quality: Mild/Moderate (Sagrario Anderson RN) Duration (sec): 60-120 (Sagrario Anderson RN) Duration Criteria: More than Two 120 Second or Greater Contractions (Sagrario Anderson RN) Pattern: Normal: <= 5 Contractions in 10 Minutes (Sagrario Anderson RN) Resting Tone (Palpate): Relaxed (Sagrario Anderson RN) Monitor Mode: External US (Sagrario Anderson RN) FHR Baseline Rate : 135 (Sagrario Anderson RN) Variability: Moderate 6-25 bpm (Sagrario Anderson RN) Accelerations: 15X15 (Sagrario Anderson RN) Decelerations: Late (Sagrario Anderson RN) Pitocin (milliunit): Pitocin Remains (milliunits) @ 2 (Sagrario Anderson RN)
[2016-04-24] MEDS: BENZOIN/ALOE VERA/STORAX/TOLU TINCTURE 60 ML TP PRN ×2 (11:13→11:16)
[2016-04-24] MEDS: FENTANYL/BUPIVACAINE/NS/PF 100 ML EPI PRN ×2 (11:16→15:30)
[2016-04-24] MEDS ORDERED: MISOPROSTOL 0.2 MG TABLET ONE (11:22)
[2016-04-24] MEDS ORDERED: LIDOCAINE 1% INJ-PF (10 MG/ML) 30 ML SDV ONE (11:22)
--- NOTE | 2016-04-24 12:01 | L&D Flow Sheet ---
LD Flowsheet Datetime Report Generated by CPN: 04/24/2016 12:00 Datetime: 04/24/2016 11:59 NBP Sys/Jackie/Mean (mmHg): 116 (QS system process) : 72 (QS system process) : 89 (QS system process) Pulse: 75 (QS system process) LaborFlag: Antepartum (QS system process) Datetime: 04/24/2016 11:45 Monitor Mode: External; Palpation (Sagrario Anderson RN) Frequency (min): 2-4 (Sagrario Baidy, RN) Quality: Moderate (Sagrario Baidy, RN) Duration (sec): 60-90 (Sagrario Baiadiel, RN) Duration Criteria: Less than Two 120 Second Contractions (Sagrario Anderson, RN) Pattern: Normal: <= 5 Contractions in 10 Minutes (Sagrario Baidy, RN) Resting Tone (Palpate): Relaxed (Sagrario Baiadiel, RN) Monitor Mode: External US (Sagrario Anderson, RN) FHR Baseline Rate : 115 (Sagrario Anderson, RN) Variability: Moderate 6-25 bpm (Sagrario Baidy, RN) Accelerations: 15X15 (Sagrario Baidy, RN) Decelerations: Early (Sagrario Justin, RN) Pitocin (milliunit): Pitocin Remains (milliunits) @ 4 (Sagrario Anderson, RN) Datetime: 04/24/2016 11:42 NBP Sys/Jackie/Mean (mmHg): 113 (QS system process) : 66 (QS system process) : 84 (QS system process) Pulse: 78 (QS system process) LaborFlag: Antepartum (QS system process) Datetime: 04/24/2016 11:30 Monitor Mode: External; Palpation (Sagrario Anderson, RN) Frequency (min): 1-4 (Sagrario Anderson, RN) Quality: Moderate (Sagrario Anderson, RN) Duration (sec): 40-110 (Sagrario Baiadiel, RN) Duration Criteria: Less than Two 120 Second Contractions (Sagrario Anderson, RN) Pattern: Normal: <= 5 Contractions in 10 Minutes (Sagrario Anderson, RN) Resting Tone (Palpate): Relaxed (Sagrario Anderson, RN) Monitor Mode: External US (Sagrario Anderson, RN) FHR Baseline Rate : 115 (Sagrario Anderson, RN) Variability: Minimal - Undetectable to <=5 bpm (Sagrario Anderson, RN) Accelerations: None (Sagrario Anderson, RN) Decelerations: Early (Sagrario Anderson, RN) Pitocin (milliunit): Pitocin Increased to (milliunits) @ 4 (Sagrario Anderson, RN) Datetime: 04/24/2016 11:28 NBP Sys/Jackie/Mean (mmHg): 106 (QS system process) : 63 (QS system process) : 80 (QS system process) Pulse: 74 (QS system process) LaborFlag: Antepartum (QS system process) Datetime: 04/24/2016 11:15 Monitor Mode: External; Palpation (Sagrario Baidy, RN) Frequency (min): 2-3 (Sagrario Baidy, RN) Quality: Moderate (Sagrario Baidy, RN) Duration (sec): 60-120 (Sagrario Baidy, RN) Duration Criteria: More than Two 120 Second or Greater Contractions (Sagrario Baidy, RN) Pattern: Normal: <= 5 Contractions in 10 Minutes (Sagrario Baidy, RN) Resting Tone (Palpate): Relaxed (Sagrario Baidy, RN) Monitor Mode: External US (Sagrario Baidy, RN) FHR Baseline Rate : 120 (Sagrario Baidy, RN) Variability: Moderate 6-25 bpm (Sagrario Baidy, RN) Accelerations: 15X15 (Sagrario Baidy, RN) Decelerations: Early (Sagrario Baidy, RN) Pitocin (milliunit): Pitocin Remains (milliunits) @ 2 (Sagrario Baidy, RN) Datetime: 04/24/2016 11:13 NBP Sys/Jackie/Mean (mmHg): 109 (QS system process) : 68 (QS system process) : 83 (QS system process) Pulse: 76 (QS system process) LaborFlag: Antepartum (QS system process) Datetime: 04/24/2016 11:01 I/O Interventions: Popsicle (Sagrario Anderson RN) Datetime: 04/24/2016 11:00 Respirations: 16 (Sagrario Anderson RN) Temperature (F): 97.4 (Sagrario Anderson RN) Temperature (C): 36.3 (QS system process) Monitor Mode: External; Palpation (Sagrario Anderson RN) Frequency (min): 1-4 (Sagrario Anderson RN) Quality: Moderate (Sagrario Anderson RN) Duration (sec): 60-100 (Sagrario Anderson RN) Duration Criteria: Less than Two 120 Second Contractions (Sagrario Anderson RN) Pattern: Normal: <= 5 Contractions in 10 Minutes (Sagrario Anderson RN) Resting Tone (Palpate): Relaxed (Sagrario Anderson RN) Monitor Mode: External US (Sagrario Anderson RN) FHR Baseline Rate : 120 (Sagrario Anderson RN) Variability: Moderate 6-25 bpm (Sagrario Anderson RN) Accelerations: 15X15 (Sagrairo Anderson RN) Decelerations: None (Sagrario Anderson RN) Pitocin (milliunit): Pitocin Started (milliunits) @ 2 (Sagrario Baidy, RN) LaborFlag: Antepartum (QS system process) Datetime: 04/24/2016 10:57 NBP Sys/Jackie/Mean (mmHg): 111 (QS system process) : 68 (QS system process) : 85 (QS system process) Pulse: 69 (QS system process) LaborFlag: Antepartum (QS system process) Datetime: 04/24/2016 10:54 Monitor Interventions for UA: [place] Adjusted (Sagrario Anderson RN) Vaginal Bleeding: Normal Show (Sagrario Anderson RN) Patient Position/Activity: Peanut Ball; Right Extreme (Sagrario Anderson, LARY) Datetime: 04/24/2016 10:45 Monitor Mode: External; Palpation (Sagrario Baidy, RN) Frequency (min): 4-5 (Sagrario Baidy, RN) Quality: Moderate (Sagrario Baidy, RN) Duration (sec): 50-60 (Sagrario Baidy, RN) Duration Criteria: Less than Two 120 Second Contractions (Sagrario Baidy, RN) Pattern: Normal: <= 5 Contractions in 10 Minutes (Sagrario Baidy, RN) Resting Tone (Palpate): Relaxed (Sagrario Baidy, RN) Monitor Mode: External US (Sagrario Baidy, RN) FHR Baseline Rate : 115 (Sagrario Baidy, RN) Variability: Moderate 6-25 bpm (Sagrario Baidy, RN) Accelerations: None (Sagrario Baidy, RN) Decelerations: None (Sagrario Baidy, RN) Datetime: 04/24/2016 10:44 NBP Sys/Jackie/Mean (mmHg): 105 (QS system process) : 58 (QS system process) : 76 (QS system process) Pulse: 81 (QS system process) LaborFlag: Antepartum (QS system process) Datetime: 04/24/2016 10:30 Monitor Mode: External; Palpation (Sagrario Baidy, RN) Frequency (min): 2-6 (Sagrario Baidy, RN) Quality: Moderate (Sagrario Baidy, RN) Duration (sec): 60-80 (Sagrario Baidy, RN) Duration Criteria: Less than Two 120 Second Contractions (Sagrario Baidy, RN) Pattern: Normal: <= 5 Contractions in 10 Minutes (Sagrario Baidy, RN) Resting Tone (Palpate): Relaxed (Sagrario Baidy, RN) Monitor Mode: External US (Sagrario Baidy, RN) FHR Baseline Rate : 115 (Sagrario Baiadiel, RN) FHR Baseline Changes: Return to Previous Baseline (Sagrario Baidy, RN) Variability: Moderate 6-25 bpm (Sagrario Baidy, RN) Accelerations: None (Sagrario Baidy, RN) Decelerations: None (Sagrario Baidy, RN) Datetime: 04/24/2016 10:29 Communication: Report Given to @ Dr Marques (Sagrario Anderson, RN) Communication Comments: SVE 4/80/0, orders received to restart pitocin if ctx space. (Sagrario Baiadiel, RN) Datetime: 04/24/2016 10:28 NBP Sys/Jackie/Mean (mmHg): 104 (QS system process) : 56 (QS system process) : 72 (QS system process) Pulse: 78 (QS system process) LaborFlag: Antepartum (QS system process) Datetime: 04/24/2016 10:21 Monitor Interventions for FHR: Ultrasound Adjusted (Sagrario Baidy, RN) Datetime: 04/24/2016 10:19 IV/Blood Work: IV Infusing per Order (Sagrario Anderson, RN) Patient Care Comments: LR @ 125mL/hr (Sagrario Baidy, RN) Datetime: 04/24/2016 10:16 Monitor Interventions for UA: [place] Adjusted (Sagrario Anderson, RN) Monitor Interventions for FHR: Ultrasound Adjusted (Sagrario Anderson, RN) Datetime: 04/24/2016 10:15 Monitor Mode: External; Palpation (Sagrario Anderson, RN) Frequency (min): 2-4 (Sagrario Anderson, RN) Quality: Moderate (Sagrario Anderson, RN) Duration (sec): 60-90 (Sagrario Anderson, RN) Duration Criteria: Less than Two 120 Second Contractions (Sagrario Anderson, RN) Pattern: Normal: <= 5 Contractions in 10 Minutes (Sagrario Anderson, RN) Resting Tone (Palpate): Relaxed (Sagrario Anderson, RN) Monitor Mode: External US (Sagrario Anderson, RN) FHR Baseline Rate : 120 (Sagrario Anderson, RN) Variability: Moderate 6-25 bpm (Sagrario Baidy, RN) Accelerations: 15X15 (Sagrario Baiadiel, RN) Decelerations: None (Sagrario Anderson, RN) Datetime: 04/24/2016 10:14 Patient Position/Activity: Left Extreme; Peanut Ball (Sagrario Anderson, RN) Datetime: 04/24/2016 10:09 NBP Sys/Jackie/Mean (mmHg): 127 (QS system process) : 60 (QS system process) : 87 (QS system process) Pulse: 80 (QS system process) LaborFlag: Antepartum (QS system process) Datetime: 04/24/2016 10:08 Dilatation (cm): 4.0 (Sagrario Anderson, RN) Effacement (%): 80 (Sagrario Anderson, RN) Station: 0 (Sagrario Anderson, RN) Exam by: Almaz Anderson RN (Sagrario Anderson, RN) Datetime: 04/24/2016 10:07 I/O Interventions: Young Cath Inserted (Sagrario Anderson, RN) Patient Care Comments: 14f clear yellow urine noted (Sagrariocorey Anderson, RN) Datetime: 04/24/2016 10:03 NBP Sys/Jackie/Mean (mmHg): 129 (QS system process) : 58 (QS system process) : 84 (QS system process) Pulse: 82 (QS system process) Pain Scale: 0 (Sagrario Anderson, RN) LaborFlag: Antepartum (QS system process) Datetime: 04/24/2016 10:02 NBP Sys/Jackie/Mean (mmHg): 132 (QS system process) : 60 (QS system process) : 87 (QS system process) Pulse: 85 (QS system process) Epidural Procedure Other: Pump Started (Sagrario Anderson RN) LaborFlag: Antepartum (QS system process) Datetime: 04/24/2016 10:01 NBP Sys/Jackie/Mean (mmHg): 137 (QS system process) : 59 (QS system process) : 85 (QS system process) Pulse: 86 (QS system process) LaborFlag: Antepartum (QS system process) Datetime: 04/24/2016 10:00 Monitor Mode: External; Palpation (Sagrario Anderson RN) Frequency (min): 1-4 (Sagrario Anderson RN) Quality: Moderate (Sagrario Anderson RN) Duration (sec): 60-90 (Sagrario Anderson RN) Duration Criteria: Less than Two 120 Second Contractions (Sagrario Anderson RN) Pattern: Normal: <= 5 Contractions in 10 Minutes (Sagrario Anderson RN) Resting Tone (Palpate): Relaxed (Sagrario Anderson RN) Monitor Mode: External US (Sagrario Anderson RN) FHR Baseline Rate : 125 (Sagrario Anderson RN) Variability: Moderate 6-25 bpm (Sagrario Anderson RN) Accelerations: None (Sagrario Anderson RN) Decelerations: None (Sagrario Anderson RN)
[2016-04-24] MEDS ORDERED: ZOLPIDEM TARTRATE 5 MG TABLET PO PRN (13:27)
[2016-04-24] MEDS ORDERED: OXYTOCIN/NORMAL SALINE 1,000 ML IV PRN (13:27)
[2016-04-24] MEDS ORDERED: DIBUCAINE 1% OINTMENT 28 GM TP PRN (13:27)
[2016-04-24] MEDS ORDERED: BENZOCAINE/MENTHOL AEROSOL SPRAY 56 ML TOP PRN (13:27)
[2016-04-24] MEDS ORDERED: ACETAMINOPHEN WITH CODEINE #3 TABLET PO PRN (13:27)
[2016-04-24] MEDS ORDERED: DIPH/PERTUSS(ACELL)/TETANUS VAC/PF 0.5 ML SYR (>=10YO) IM PRN (13:27)
[2016-04-24] MEDS ORDERED: MEASLES,MUMPS&RUBELLA VACC/PF 0.5 ML VIAL SUBCUT PRN (13:27)
[2016-04-24] MEDS ORDERED: IBUPROFEN 800 MG TABLET PO SCH (14:00)
--- NOTE | 2016-04-24 14:00 | L&D Flow Sheet ---
LD Flowsheet Datetime Report Generated by CPN: 04/24/2016 14:00 Datetime: 04/24/2016 13:57 NBP Sys/Jackie/Mean (mmHg): 123 (QS system process) : 58 (QS system process) : 84 (QS system process) Pulse: 83 (QS system process) Datetime: 04/24/2016 13:43 NBP Sys/Jackie/Mean (mmHg): 124 (QS system process) : 55 (QS system process) : 79 (QS system process) Pulse: 95 (QS system process) Datetime: 04/24/2016 13:28 NBP Sys/Jackie/Mean (mmHg): 132 (QS system process) : 56 (QS system process) : 81 (QS system process) Pulse: 88 (QS system process) Pain Scale: 0 (Sagrario Baidy, RN) Datetime: 04/24/2016 13:14 NBP Sys/Jackie/Mean (mmHg): 165 (QS system process) : 63 (QS system process) : 91 (QS system process) Pulse: 104 (QS system process) Datetime: 04/24/2016 13:13 Stage of : Recovery (Natalia Berlin, RN) Datetime: 04/24/2016 13:12 Stage of : Recovery (Natalia Berlin, RN) Respirations: 16 (Sagrario Baidy, RN) Pain Scale: 0 (Sagrario Baidy, RN) Pain Presence: None/Denies (Sagrario Baidy, RN) Pain Type: N/A (Sagrario Baidy, RN) Datetime: 04/24/2016 13:10 Medication Comments: pitocin bolus started (Natalia Berlin, RN) Datetime: 04/24/2016 13:07 Pushing Progress: with Pushing (Sagrariocorey Anderson, RN) Datetime: 04/24/2016 13:00 Monitor Mode: External; Palpation (Natalia Slade, RN) Frequency (min): 2 (Natalia Slade, RN) Quality: Moderate (Natalia Slade, RN) Duration (sec): 60-70 (Natalia Slade, RN) Resting Tone (Palpate): Relaxed (Natalia Slade, RN) Monitor Mode: External US (Natalia Slade, RN) FHR Baseline Rate : 135 (Natalia Slade, RN) Variability: Moderate 6-25 bpm (Natalia Berlin, RN) Decelerations: Variable (Natalia Slade, RN) Pitocin (milliunit): Pitocin Remains (milliunits) @ 6 (Natalia Slade, RN) Datetime: 04/24/2016 12:52 Pushing Progress: Presenting Part Visible; Pushing Effectively with Contractions (Sagrario Anderson RN) Datetime: 04/24/2016 12:45 Monitor Mode: External; Palpation (Natalia Slade RN) Frequency (min): 2 (Natalia Slade RN) Quality: Moderate (Natalia Slade RN) Duration (sec): 60-70 (Natalia Slade RN) Resting Tone (Palpate): Relaxed (Natalia Slade RN) Monitor Mode: External US (Natalia Slade RN) FHR Baseline Rate : 130 (Natalia Slade RN) Variability: Moderate 6-25 bpm (Natalia Slade RN) Decelerations: Early (Natalia Slade RN) Pitocin (milliunit): Pitocin Remains (milliunits) @ 6 (Natalia Slade RN) Datetime: 04/24/2016 12:43 NBP Sys/Jackie/Mean (mmHg): 149 (QS system process) : 56 (QS system process) : 81 (QS system process) Pulse: 83 (QS system process) LaborFlag: Antepartum (QS system process) Datetime: 04/24/2016 12:42 Pushing Position: Pushing with Contractions (Sagrario Anderson RN) Pushing Progress: Descent with Pushing (Sagrario Anderson RN) Datetime: 04/24/2016 12:30 Monitor Mode: External; Palpation (Natalia Slade RN) Frequency (min): 2-3 (Natalia Slade RN) Quality: Moderate (Natalia Slade RN) Duration (sec): 50-70 (Natalia Slade RN) Resting Tone (Palpate): Relaxed (Natalia Slade RN) Monitor Mode: External US (Natalia Slade RN) FHR Baseline Rate : 130 (Natalia Slade RN) Variability: Moderate 6-25 bpm (Natalia Slade RN) Accelerations: 15X15 (Natalia Slade RN) Decelerations: None (Natalia Slade RN) Comments: RN and provider remain at bedside continuously monitoring fht while pt effectively pushing with ctx. (aSgrario Anderson RN) Comments: RN and provider remain at bedside continuously assessing FHR while patient pushing (Natalia Slade RN) Pitocin (milliunit): Pitocin Remains (milliunits) @ 6 (Natalia Slade, RN) Datetime: 04/24/2016 12:29 Pushing: Coached on Pushing (Sagrario Baidy, RN) Datetime: 04/24/2016 12:26 I/O Interventions: Young Discontinued (Sagrario Baidy, RN) Patient Care Comments: 650mL (Sagrario Baidy, RN) Datetime: 04/24/2016 12:23 Dilatation (cm): 10.0 (Sagrario Anderson RN) Effacement (%): 100 (Sagrario Anderson RN) Station: 2 (Sagrario Anderson RN) Exam by: Dr Marques (Sagrario Anderson, LARY) Communication Comments: Dr Marques at bedside to perform SVE (Sagrario Anderson RN) Datetime: 04/24/2016 12:15 Monitor Mode: External; Palpation (Sagrario Anderson RN) Frequency (min): 1-2.5 (Sagrario Anderson RN) Quality: Moderate (Sagrario Anderson RN) Duration (sec): 60-90 (Sagrario Anderson RN) Duration Criteria: Less than Two 120 Second Contractions (Sagrario Anderson RN) Pattern: Normal: <= 5 Contractions in 10 Minutes (Sagrario Anderson RN) Resting Tone (Palpate): Relaxed (Sagrario Anderson RN) Monitor Mode: External US (Sagrario Anderson RN) FHR Baseline Rate : 125 (Sagrario Anderson RN) Variability: Moderate 6-25 bpm (Sagrario Anderson RN) Accelerations: 15X15 (Sgarario Anderson RN) Decelerations: None (Sagrario Anderson, LARY) Pitocin (milliunit): Pitocin Remains (milliunits) @ 6 (Sagrario Anderson RN) Datetime: 04/24/2016 12:12 NBP Sys/Jackie/Mean (mmHg): 120 (QS system process) : 77 (QS system process) : 92 (QS system process) Pulse: 85 (QS system process) LaborFlag: Antepartum (QS system process) Datetime: 04/24/2016 12:00 Monitor Mode: External; Palpation (Sagrario Anderson RN) Frequency (min): 2-4 (Sagrario Anderson RN) Quality: Moderate (Sagrario Anderson RN) Duration (sec): 60-80 (Sagrario Anderson RN) Duration Criteria: Less than Two 120 Second Contractions (Sagrario Anderson RN) Pattern: Normal: <= 5 Contractions in 10 Minutes (Sagrario Anderson RN) Resting Tone (Palpate): Relaxed (Sagrario Anderson RN) Monitor Mode: External US (Sagrario Anderson RN) FHR Baseline Rate : 115 (Sagrario Anderson RN) Variability: Moderate 6-25 bpm (Sagrario Anderson RN) Accelerations: 15X15 (Sagrario Anderson RN) Decelerations: None (Sagrario Anderson RN) Pitocin (milliunit): Pitocin Increased to (milliunits) @ 6 (Sagrario Anderson RN)
[2016-04-24] MEDS ORDERED: IBUPROFEN 800 MG TABLET ONE (14:38)
[2016-04-24] MEDS ORDERED: ACETAMINOPHEN WITH CODEINE #3 TABLET ONE (14:38)
--- NOTE | 2016-04-24 15:09 | Admission Physical ---
Datetime Report Generated by CPN: 04/24/2016 15:08 CURRENT ADMISSION Hx Assessment: The History has been Reviewed and is Current Chief Complaint: Scheduled Induction of Labor Indication for Induction: Postterm Admit Plan: Admit to Unit; Initiate Labor Induction Protocol ALLERGIES Medication Allergies: Yes Medication Allergies: clindamycin/Anaphylaxis (04/23/2016); amoxicillin/Anaphylaxis (04/23/2016) Latex: Latex Allergies Food Allergies: None Environmental Allergies: Bees, Wasps, Hornets OBSTETRICAL HISTORY EDC: 04/17/2016 00:00 : 1 Para: 0 Term: 0 : 0 SAB: 0 IAB: 0 Ectopic: 0 Livin Cesareans: 0 VBACs: 0 Multiple Births: 0 Gestational Diabetes: Yes Rh Sensitization: No Incompetent Cervix: No AYO: No Infertility: No ART Treatment: No Uterine Anomaly: No IUGR: No Hx Previous C/S: No Macrosomia: No Hx Loss/Stillborn: No PIH: No Hx : No Placenta Previa/Abruption: No Depression/PP Depression: Unknown PTL/PROM: No Post Hemorrhage: Unknown Current Procedures: Ultrasound; NST Obstetrical History Comments: G1- current SEE RECORDS Alcohol: No Marijuana : No Cocaine: No Other Illicit Drugs: No Cigarettes: Current Everyday Smoker. 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 Biopsy INFECTIOUS HISTORY Gonorrhea: No Genital Herpes: No Chlamydia: No Tuberculosis: No Syphilis: No Hepatitis: No HIV/AIDS Exposure: No Rash or Viral Illness: No HPV: No PHYSICAL EXAM General: Normal HEENT: Normal Neurologic: Normal Thyroid: Deferred Heart: Normal Lungs: Normal Breast: Deferred Back: Normal Abdomen: Normal Genitourinary Exam: Normal Extremities: Normal DTRs: Normal Pelvic Type: Adequate Physical Exam Comments: G1, GBS neg GDM, diet control 04-20-16= 2/50/-2, MIKAYLA 14.5 ASCUS pap HR HPV Vital Signs: Reviewed MEM[facility]ES Amniotic Fluid Color: Clear FETUS A Monitoring: External US Decelerations: None Admit Comment: Admitted to L_D for IOL for post dates and GDM diet controlled GBS neg POC discussed, cervidil/Pitocin Cat 1 strip PLANS FOR LABOR AND DELIVERY Labor and Delivery: None Pain Management: Epidural Feeding Preference: Formula Benefit of Breast Feed Discussed: Yes Circumcision: Yes INFORMED CONSENT Assignment: Sofiya Gold MD Signature: with User ID: Ciara : with User ID: [email or web address]
--- NOTE | 2016-04-24 15:24 | Delivery Summary ---
Del Sum A-C Datetime Report Generated by CPN: 04/24/2016 15:24 ADMISSION DATA Chief Complaint: Scheduled Induction of Labor Indication for Induction: Postterm Admission Impression: Postterm, Intrauterine ; No Active Labor; Intact Membranes; Induction of Labor Admit Provider Comments: Admitted to L_D for IOL for post dates and GDM diet controlled GBS neg POC discussed, cervidil/Pitocin Cat 1 strip DELIVERY PERSONNEL Delivery Doctor:: Viktoria Marques MD Labor and Delivery Nurse:: Sagrario Anderson RN Nursery Nurse:: ALEXANDRA Spears Street Light Repairer/RELINER: Azalia Boss, LICENSED MASTER SOCIAL WORKER MATERNAL INFORMATION Delivery Anesthesia: Epidural Medications After Delivery: Pitocin Drip 20 Units/1000ml NSS Meds After Delivery Comment: pitocin bolusing Estimated Blood Loss (ml): 250 Maternal Complications: None Provider Comments: Pt progressed to complete and pushing. Head delivered OA. Nuchal cord reduced. Shoulders and body delivered easily. Cord clamped and cut. Placenta spont and intact. Male infant with apgars 8 and 9. Lac repaired. Mom and baby doing well. LABOR SUMMARY EDC: 04/17/2016 00:00 No. Babies in Womb: 1 Attempted: No Labor Anesthesia: Epidural LABOR INFORMATION Reason for Induction: Post Dates; Maternal Diabetes Reason for Induction- Other: GDM diet controlled Onset of Labor: 04/24/2016 08:34 Complete Dilatation: 04/24/2016 12:23 Cervical Ripening Agents: Cervidil Oxytocin: Induction Group B Beta Strep: Neg Steroids Given: None Reason Steroids Not Administered: Not Applicable MEM[facility]ANES Membranes Rupture Method: Artificial Rupture of Membranes: 04/24/2016 08:34 Length of Rupture (hr): 4.58 Amniotic Fluid Color: Clear Amniotic Fluid Amount: Small Amniotic Fluid Odor: Normal STAGES OF LABOR Stage 1 hr: 3 Stage 1 min: 49 Stage 2 hr: 0 Stage 2 min: 46 Stage 3 hr: 0 Stage 3 min: 3 Total Time in Labor hr: 4 Total Time in Labor min: 38 VAGINAL DELIVERY Episiotomy: None Laceration Extension: First Degree Laceration Type: Perineal Laceration Repair: Yes Laceration Repair Note: with 2-0 chromic Sponge Count Correct: Yes Sharps Count Correct: Yes CSECTION DELIVERY Primary Indication: N/A Secondary Indication: N/A CSection Incidence: N/A Labor: N/A Elective: N/A CSection Incision: N/A BABY A INFORMATION Delivery Date/Time: 04/24/2016 13:09 Method of Delivery: Vaginal Born in Route : No : N/A Forceps: N/A Vacuum Extraction: N/A Shoulder Dystocia : No PRESENTATION/POSITION BABY A Presentation: Cephalic Cephalic Presentation: Vertex Vertex Position: Right Occipital Anterior Breech Presentation: N/A PLACENTA INFORMATION BABY A Placenta Delivery Time : 04/24/2016 13:12 Placenta Method of Delivery: Spontaneous Placenta Status: Delivered SCORES BABY A Heart Rate 1 min: >100 bpm Resp Effort 1 min: Good Cry Reflex Irritability 1 min: Cough or Sneeze or Pulls Away Muscle Tone 1 min: Active Motion Color 1 min: Blue/Pale Resuscitation Effort 1 min: Tactile Stimulation SCORE 1 MIN: 8 Heart Rate 5 min: >100 bpm Resp Effort 5 min: Good Cry Reflex Irritability 5 min: Cough or Sneeze or Pulls Away Muscle Tone 5 min: Active Motion Color 5 min: Body [place], Extremities Blue Resuscitation Effort 5 min: N/A SCORE 5 MIN: 9 INFANT INFORMATION BABY A Gestational Age at Delivery: 41.0 Gestational Status: Late Term- 41- 41.6 Weeks Outcome : Liveborn Condition : Stable Infant Sex: Male IDENTIFICATION BABY A Infant Verification Date/Time: 04/24/2016 13:42 ID Band Number: [id number] Mother's Name Verified: Yes RN Verifying Infant: Kenton Slade RN Additional Verifying Personnel: Elias Anderson RN WEIGHT/LENGTH BABY A Infant Birthweight (gm): 3020 Weight (lb): 6 Weight (oz): 11 Infant Length (in): 20.00 Infant Length (cm): 50.80 CORD INFORMATION BABY A No. Cord Vessels: 3 Nuchal Cord : Around Neck x1, Loose Cord Blood Taken: Yes-For Eval (Mom's Blood Type - or O+) Suction: Nose ASSESSMENT BABY A Infant Complications: None Physical Findings at Delivery: Within Normal Limits; Molding of the Head Infant Respirations: Appears Normal Skin to Skin: Yes Skin to Skin Time (min): 75 Earth Moving Machine Operator/ALS Called : No Care By: Kenton Slade RN Transferred To: Remains with Mother BABY B INFORMATION : N/A SIGNATURES Signature: with User ID: [email or web address]
[2016-04-24] MEDS: FERROUS SULFATE 325 MG TABLET PO SCH (17:06)
[2016-04-24] MEDS: DOCUSATE SODIUM 100 MG CAPSULE PO SCH (17:06)
--- NOTE | 2016-04-24 19:01 | L&D Flow Sheet ---
LD Flowsheet Datetime Report Generated by CPN: 04/24/2016 19:00 Datetime: 04/24/2016 14:43 NBP Sys/Jackie/Mean (mmHg): 133 (QS system process) : 65 (QS system process) : 93 (QS system process) Pulse: 95 (QS system process) Datetime: 04/24/2016 14:38 Pain Scale: 3 (Sagrario Anderson, RN) Pain Presence: Constant (Sagrario Anderson, RN) Pain Type: Cramping; Ache (Sagrario Anderson, RN) Pain Location: Abdomen; Perineum (Sagrario Anderson, RN) Pain Goal: 1 (Sagrario Anderson, LARY) Pain Relief Measures: Pain Medication Given (Sagrario Anderson, LARY) Datetime: 04/24/2016 14:28 NBP Sys/Jackie/Mean (mmHg): 117 (QS system process) : 61 (QS system process) : 82 (QS system process) Pulse: 78 (QS system process) Datetime: 04/24/2016 14:13 NBP Sys/Jackie/Mean (mmHg): 120 (QS system process) : 70 (QS system process) : 88 (QS system process) Pulse: 96 (QS system process) Datetime: 04/24/2016 13:57 NBP Sys/Jackie/Mean (mmHg): 123 (QS system process) : 58 (QS system process) : 84 (QS system process) Pulse: 83 (QS system process) Datetime: 04/24/2016 13:43 NBP Sys/Jackie/Mean (mmHg): 124 (QS system process) : 55 (QS system process) : 79 (QS system process) Pulse: 95 (QS system process) Datetime: 04/24/2016 13:28 NBP Sys/Jackie/Mean (mmHg): 132 (QS system process) : 56 (QS system process) : 81 (QS system process) Pulse: 88 (QS system process) Pain Scale: 0 (Sagrario Baidy, RN) Datetime: 04/24/2016 13:14 NBP Sys/Jackie/Mean (mmHg): 165 (QS system process) : 63 (QS system process) : 91 (QS system process) Pulse: 104 (QS system process) Datetime: 04/24/2016 13:13 Stage of : Recovery (Natalia Slade RN) Datetime: 04/24/2016 13:12 Stage of : Recovery (Natalia Slade RN) Respirations: 16 (Sagrario Anderson RN) Pain Scale: 0 (Sagrario Anderson RN) Pain Presence: None/Denies (Sagrario Andersno RN) Pain Type: N/A (Sagrario Baidy, RN) Datetime: 04/24/2016 13:10 Medication Comments: pitocin bolus started (Natalia Berlin, RN) Datetime: 04/24/2016 13:07 Pushing Progress: with Pushing (Sagrario Baidy, RN) Datetime: 04/24/2016 13:00 Monitor Mode: External; Palpation (Natalia Slade RN) Frequency (min): 2 (Natalia Slade RN) Quality: Moderate (Naatlia Slade RN) Duration (sec): 60-70 (Natalia Slade RN) Resting Tone (Palpate): Relaxed (Natalia Slade RN) Monitor Mode: External US (Natalia Slade RN) FHR Baseline Rate : 135 (Natalia Slade RN) Variability: Moderate 6-25 bpm (Natalia Slade RN) Decelerations: Variable (Natalia Slade RN) Pitocin (milliunit): Pitocin Remains (milliunits) @ 6 (Natalia Slade RN) Datetime: 04/24/2016 12:52 Pushing Progress: Presenting Part Visible; Pushing Effectively with Contractions (Sagrario Anderson, LARY) Datetime: 04/24/2016 12:45 Monitor Mode: External; Palpation (Natalia Slade RN) Frequency (min): 2 (Natalia Slade RN) Quality: Moderate (Natalia Slade RN) Duration (sec): 60-70 (Natalia Slade RN) Resting Tone (Palpate): Relaxed (Natalia Slade RN) Monitor Mode: External US (Natalia Berlin, RN) FHR Baseline Rate : 130 (Natalia Slade, RN) Variability: Moderate 6-25 bpm (Natalia Slade, RN) Decelerations: Early (Natalia Slade, RN) Pitocin (milliunit): Pitocin Remains (milliunits) @ 6 (Natalia Slade, RN) Datetime: 04/24/2016 12:43 NBP Sys/Jackie/Mean (mmHg): 149 (QS system process) : 56 (QS system process) : 81 (QS system process) Pulse: 83 (QS system process) LaborFlag: Antepartum (QS system process) Datetime: 04/24/2016 12:42 Pushing Position: Pushing with Contractions (Sagrario Anderson, RN) Pushing Progress: Descent with Pushing (Sagrario Anderson, RN) Datetime: 04/24/2016 12:30 Monitor Mode: External; Palpation (Natalia Slade RN) Frequency (min): 2-3 (Natalia Slade RN) Quality: Moderate (Natalia Slade RN) Duration (sec): 50-70 (Natalia Slade RN) Resting Tone (Palpate): Relaxed (Natalia Slade RN) Monitor Mode: External US (Natalia Slade RN) FHR Baseline Rate : 130 (Natalia Slade RN) Variability: Moderate 6-25 bpm (Natalia Slade RN) Accelerations: 15X15 (Natalia Slade RN) Decelerations: None (Natalia Slade RN) Comments: RN and provider remain at bedside continuously monitoring fht while pt effectively pushing with ctx. (Sagrario Anderson RN) Comments: RN and provider remain at bedside continuously assessing FHR while patient pushing (Natalia Slade RN) Pitocin (milliunit): Pitocin Remains (milliunits) @ 6 (Natalia Slade RN) Datetime: 04/24/2016 12:29 Pushing: Coached on Pushing (Sagrario Anderson RN) Datetime: 04/24/2016 12:26 I/O Interventions: Young Discontinued (Sagrario Anderson, LARY) Patient Care Comments: 650mL (Sagrario Anderson, LARY) Datetime: 04/24/2016 12:23 Dilatation (cm): 10.0 (Sagrario Anderson RN) Effacement (%): 100 (Sagrario Anderson RN) Station: 2 (Sagrario Anderson RN) Exam by: Dr Marques (Sagrario Anderson RN) Communication Comments: Dr Marques at bedside to perform SVE (Sagrario Anderson RN) Datetime: 04/24/2016 12:15 Monitor Mode: External; Palpation (Sagrario Anderson, RN) Frequency (min): 1-2.5 (Sagrario Anderson, RN) Quality: Moderate (Sagrario Anderson, RN) Duration (sec): 60-90 (Sagrario Anderson, RN) Duration Criteria: Less than Two 120 Second Contractions (Sagrario Anderson, RN) Pattern: Normal: <= 5 Contractions in 10 Minutes (Sagrario Anderson, RN) Resting Tone (Palpate): Relaxed (Sagrario Anderson, RN) Monitor Mode: External US (Sagrario Anderson RN) FHR Baseline Rate : 125 (Sagrario Anderson, RN) Variability: Moderate 6-25 bpm (Sagrario Anderson, RN) Accelerations: 15X15 (Sagrario Anderson, RN) Decelerations: None (Sagrario Anderson, RN) Pitocin (milliunit): Pitocin Remains (milliunits) @ 6 (Sagrario Anderson, RN) Datetime: 04/24/2016 12:12 NBP Sys/Jackie/Mean (mmHg): 120 (QS system process) : 77 (QS system process) : 92 (QS system process) Pulse: 85 (QS system process) LaborFlag: Antepartum (QS system process) Datetime: 04/24/2016 12:00 Monitor Mode: External; Palpation (Sagrario Anderson, RN) Frequency (min): 2-4 (Sagrario Baidy, RN) Quality: Moderate (Sagrario Baidy, RN) Duration (sec): 60-80 (Sagrario Baidy, RN) Duration Criteria: Less than Two 120 Second Contractions (Sagrario Baidy, RN) Pattern: Normal: <= 5 Contractions in 10 Minutes (Sagrario Baidy, RN) Resting Tone (Palpate): Relaxed (Sagrario Baidy, RN) Monitor Mode: External US (Sagrario Baiadiel, RN) FHR Baseline Rate : 115 (Sagrario Baidy, RN) Variability: Moderate 6-25 bpm (Sagrario Baidy, RN) Accelerations: 15X15 (Sagrario Baidy, RN) Decelerations: None (Sagrario Baidy, RN) Pitocin (milliunit): Pitocin Increased to (milliunits) @ 6 (Sagrario Baidy, RN) Datetime: 04/24/2016 11:59 NBP Sys/Jackie/Mean (mmHg): 116 (QS system process) : 72 (QS system process) : 89 (QS system process) Pulse: 75 (QS system process) LaborFlag: Antepartum (QS system process) Datetime: 04/24/2016 11:45 Monitor Mode: External; Palpation (Sagrario Baidy, RN) Frequency (min): 2-4 (Sagrario Baidy, RN) Quality: Moderate (Sagrario Baidy, RN) Duration (sec): 60-90 (Sagrario Baidy, RN) Duration Criteria: Less than Two 120 Second Contractions (Sagrario Baidy, RN) Pattern: Normal: <= 5 Contractions in 10 Minutes (Sagrario Baidy, RN) Resting Tone (Palpate): Relaxed (Sagrario Baidy, RN) Monitor Mode: External US (Sagrario Baiadiel, RN) FHR Baseline Rate : 115 (Sagrario Baidy, RN) Variability: Moderate 6-25 bpm (Sagrario Baidy, RN) Accelerations: 15X15 (Sagrario Baidy, RN) Decelerations: Early (Sagrario Baidy, RN) Pitocin (milliunit): Pitocin Remains (milliunits) @ 4 (Sagrario Baidy, RN) Datetime: 04/24/2016 11:42 NBP Sys/Jackie/Mean (mmHg): 113 (QS system process) : 66 (QS system process) : 84 (QS system process) Pulse: 78 (QS system process) LaborFlag: Antepartum (QS system process) Datetime: 04/24/2016 11:30 Monitor Mode: External; Palpation (Sagrario Anderson RN) Frequency (min): 1-4 (Sagrario Anderson, LARY) Quality: Moderate (Sagrario Anderson, RN) Duration (sec): 40-110 (Sagrario Anderson, RN) Duration Criteria: Less than Two 120 Second Contractions (Sagrario Anderson, LARY) Pattern: Normal: <= 5 Contractions in 10 Minutes (Sagrario Anderson, RN) Resting Tone (Palpate): Relaxed (Sagrario Anderson, RN) Monitor Mode: External US (Sagrario Anderson, LARY) FHR Baseline Rate : 115 (Sagrario Anderson, RN) Variability: Minimal - Undetectable to <=5 bpm (Sagrario Anderson, RN) Accelerations: None (Sagrario Anderson, RN) Decelerations: Early (Sagrario Anderson, RN) Pitocin (milliunit): Pitocin Increased to (milliunits) @ 4 (Sagrario Anderson, LARY) Datetime: 04/24/2016 11:28 NBP Sys/Jackie/Mean (mmHg): 106 (QS system process) : 63 (QS system process) : 80 (QS system process) Pulse: 74 (QS system process) LaborFlag: Antepartum (QS system process) Datetime: 04/24/2016 11:15 Monitor Mode: External; Palpation (Sagrario Anderson, RN) Frequency (min): 2-3 (Sagrario Anderson, RN) Quality: Moderate (Sagrario Justin, RN) Duration (sec): 60-120 (Sagrario Justin, RN) Duration Criteria: More than Two 120 Second or Greater Contractions (Sagrario Anderson, RN) Pattern: Normal: <= 5 Contractions in 10 Minutes (Sagrario Anderson, RN) Resting Tone (Palpate): Relaxed (Sagrario Anderson, RN) Monitor Mode: External US (Sagrario Anderson, RN) FHR Baseline Rate : 120 (Sagrario Anderson, RN) Variability: Moderate 6-25 bpm (Sagrario Baidy, RN) Accelerations: 15X15 (Sagrario Baidy, RN) Decelerations: Early (Sagrario Baiadiel, RN) Pitocin (milliunit): Pitocin Remains (milliunits) @ 2 (Sagrario Anderson, RN) Datetime: 04/24/2016 11:13 NBP Sys/Jackie/Mean (mmHg): 109 (QS system process) : 68 (QS system process) : 83 (QS system process) Pulse: 76 (QS system process) LaborFlag: Antepartum (QS system process) Datetime: 04/24/2016 11:01 I/O Interventions: Popsicle (Sagrario Anderson RN) Datetime: 04/24/2016 11:00 Respirations: 16 (Sagrario Anderson RN) Temperature (F): 97.4 (Sagrario Anderson RN) Temperature (C): 36.3 (QS system process) Monitor Mode: External; Palpation (Sagrario Anderson RN) Frequency (min): 1-4 (Sagrario nAderson RN) Quality: Moderate (Sagrario Anderson RN) Duration (sec): 60-100 (Sagrario Anderson RN) Duration Criteria: Less than Two 120 Second Contractions (Sagrario Anderson RN) Pattern: Normal: <= 5 Contractions in 10 Minutes (Sagrario Anderson RN) Resting Tone (Palpate): Relaxed (Sagrario Anderson RN) Monitor Mode: External US (Sagrario Anderson RN) FHR Baseline Rate : 120 (Sagrario Anderson RN) Variability: Moderate 6-25 bpm (Sagrario Anderson RN) Accelerations: 15X15 (Sagrario Anderson RN) Decelerations: None (Sagrario Anderson RN) Pitocin (milliunit): Pitocin Started (milliunits) @ 2 (Sagrario Anderson RN) LaborFlag: Antepartum (QS system process) Datetime: 04/24/2016 10:57 NBP Sys/Jackie/Mean (mmHg): 111 (QS system process) : 68 (QS system process) : 85 (QS system process) Pulse: 69 (QS system process) LaborFlag: Antepartum (QS system process) Datetime: 04/24/2016 10:54 Monitor Interventions for UA: [place] Adjusted (Sagrario Anderson RN) Vaginal Bleeding: Normal Show (Sagrario Anderson RN) Patient Position/Activity: Peanut Ball; Right Extreme (Sagrario Anderson RN) Datetime: 04/24/2016 10:45 Monitor Mode: External; Palpation (Sagrario Anderson, RN) Frequency (min): 4-5 (Sagrario Baidy, RN) Quality: Moderate (Sagrario Baidy, RN) Duration (sec): 50-60 (Sagrario Baidy, RN) Duration Criteria: Less than Two 120 Second Contractions (Sagrario Baidy, RN) Pattern: Normal: <= 5 Contractions in 10 Minutes (Sagrario Baidy, RN) Resting Tone (Palpate): Relaxed (Sagrario Baiadiel, RN) Monitor Mode: External US (Sagrario Anderson, RN) FHR Baseline Rate : 115 (Sagrario Baidy, RN) Variability: Moderate 6-25 bpm (Sagrario Baidy, RN) Accelerations: None (Sagrario Baidy, RN) Decelerations: None (Sagrario Baidy, RN) Datetime: 04/24/2016 10:44 NBP Sys/Jackie/Mean (mmHg): 105 (QS system process) : 58 (QS system process) : 76 (QS system process) Pulse: 81 (QS system process) LaborFlag: Antepartum (QS system process) Datetime: 04/24/2016 10:30 Monitor Mode: External; Palpation (Sagrario Anderson, RN) Frequency (min): 2-6 (Sagrario Anderson, RN) Quality: Moderate (Sagrario Anderson, RN) Duration (sec): 60-80 (Sagrario Anderson, RN) Duration Criteria: Less than Two 120 Second Contractions (Sagrario Anderson, RN) Pattern: Normal: <= 5 Contractions in 10 Minutes (Sagrario Anderson, RN) Resting Tone (Palpate): Relaxed (Sagrario Anderson, RN) Monitor Mode: External US (Sagrario Anderson, RN) FHR Baseline Rate : 115 (Sagrario Anderson, RN) FHR Baseline Changes: Return to Previous Baseline (Sagrario Anderson, RN) Variability: Moderate 6-25 bpm (Sagrario Baidy, RN) Accelerations: None (Sagrario Baidy, RN) Decelerations: None (Sagrario Baiadiel, RN) Datetime: 04/24/2016 10:29 Communication: Report Given to @ Dr Marques (Sagrario Anderson, LARY) Communication Comments: SVE 4/80/0, orders received to restart pitocin if ctx space. (Sagrario Baidy, RN) Datetime: 04/24/2016 10:28 NBP Sys/Jackie/Mean (mmHg): 104 (QS system process) : 56 (QS system process) : 72 (QS system process) Pulse: 78 (QS system process) LaborFlag: Antepartum (QS system process) Datetime: 04/24/2016 10:21 Monitor Interventions for FHR: Ultrasound Adjusted (Sagrario Baidy, RN) Datetime: 04/24/2016 10:19 IV/Blood Work: IV Infusing per Order (Sagrario Anderson RN) Patient Care Comments: LR @ 125mL/hr (Sagrario Anderson RN) Datetime: 04/24/2016 10:16 Monitor Interventions for UA: [place] Adjusted (Sagrario Anderson RN) Monitor Interventions for FHR: Ultrasound Adjusted (Sagrario Anderson RN) Datetime: 04/24/2016 10:15 Monitor Mode: External; Palpation (Sagrario Anderson RN) Frequency (min): 2-4 (Sagrario Anderson RN) Quality: Moderate (Sagrario Anderson RN) Duration (sec): 60-90 (Sagrario Anderson RN) Duration Criteria: Less than Two 120 Second Contractions (Sagrario Anderson RN) Pattern: Normal: <= 5 Contractions in 10 Minutes (Sagrario Anderson RN) Resting Tone (Palpate): Relaxed (Sagrario Anderson RN) Monitor Mode: External US (Sagrario Anderson RN) FHR Baseline Rate : 120 (Sagrario Anderson RN) Variability: Moderate 6-25 bpm (Sagrario Baidy, RN) Accelerations: 15X15 (Sagrario Anderson, RN) Decelerations: None (Sagrario Anderson, RN) Datetime: 04/24/2016 10:14 Patient Position/Activity: Left Extreme; Peanut Ball (Sagrario Anderson, RN) Datetime: 04/24/2016 10:09 NBP Sys/Jackie/Mean (mmHg): 127 (QS system process) : 60 (QS system process) : 87 (QS system process) Pulse: 80 (QS system process) LaborFlag: Antepartum (QS system process) Datetime: 04/24/2016 10:08 Dilatation (cm): 4.0 (Sagrario Anderson RN) Effacement (%): 80 (Sagrario Anderson RN) Station: 0 (Sagrario Anderson RN) Exam by: Almaz Anderson RN (Sagrario Anderson, LARY) Datetime: 04/24/2016 10:07 I/O Interventions: Young Cath Inserted (Sagrario Anderson RN) Patient Care Comments: 14f clear yellow urine noted (Sagrario Anderson, LARY) Datetime: 04/24/2016 10:03 NBP Sys/Jackie/Mean (mmHg): 129 (QS system process) : 58 (QS system process) : 84 (QS system process) Pulse: 82 (QS system process) Pain Scale: 0 (Sagrario Anderson RN) LaborFlag: Antepartum (QS system process) Datetime: 04/24/2016 10:02 NBP Sys/Jackie/Mean (mmHg): 132 (QS system process) : 60 (QS system process) : 87 (QS system process) Pulse: 85 (QS system process) Epidural Procedure Other: Pump Started (Sagrario Anedrson RN) LaborFlag: Antepartum (QS system process) Datetime: 04/24/2016 10:01 NBP Sys/Jackie/Mean (mmHg): 137 (QS system process) : 59 (QS system process) : 85 (QS system process) Pulse: 86 (QS system process) LaborFlag: Antepartum (QS system process) Datetime: 04/24/2016 10:00 Monitor Mode: External; Palpation (Sagrario Anderson, RN) Frequency (min): 1-4 (Sagrario Anderson, RN) Quality: Moderate (Sagrario Baiadiel, RN) Duration (sec): 60-90 (Sagrario Anderson, RN) Duration Criteria: Less than Two 120 Second Contractions (Sagrario Anderson, RN) Pattern: Normal: <= 5 Contractions in 10 Minutes (Sagrario Baiadiel, RN) Resting Tone (Palpate): Relaxed (Sagrario Anderson, RN) Monitor Mode: External US (Sagrario Anderson RN) FHR Baseline Rate : 125 (Sagrario Anderson, RN) Variability: Moderate 6-25 bpm (Sagrario Baiadiel, RN) Accelerations: None (Sagrario Anderson, RN) Decelerations: None (Sagrario Anderson, RN) Datetime: 04/24/2016 09:59 Pulse: 98 (QS system process) SpO2 (%): 89 (QS system process) LaborFlag: Antepartum (QS system process) Datetime: 04/24/2016 09:58 NBP Sys/Jackie/Mean (mmHg): 130 (QS system process) : 60 (QS system process) : 73 (QS system process) Pulse: 101 (QS system process) LaborFlag: Antepartum (QS system process) Datetime: 04/24/2016 09:57 Pulse: 94 (QS system process) SpO2 (%): 98 (QS system process) Epidural Procedure: Loading Dose (Sagrario Anderson RN) LaborFlag: Antepartum (QS system process) Datetime: 04/24/2016 09:56 NBP Sys/Jackie/Mean (mmHg): 133 (QS system process) : 63 (QS system process) : 91 (QS system process) Pulse: 83 (QS system process) Epidural Procedure: Cath Placed (Sagrario Anderson RN) Epidural Procedure: Test Dose (Sagrario Anderson RN) LaborFlag: Antepartum (QS system process) Datetime: 04/24/2016 09:52 Pulse: 89 (QS system process) SpO2 (%): 98 (QS system process) Procedure Type: epidural (Sagrario Anderson RN) Procedure Verify: Correct Patient Identity; Correct Side and Site are Marked; Accurate Procedure Consent Form; Agreement on Procedure to be Done; Correct Patient Position; Relevant Images and Results are Properly Labeled and Displayed; Addressed Need to Administer Antibiotics or Fluids for Irrigation; Safety Precautions Based on Patient History or Medication Use (Sagrario Anderson RN) Anesthesia Plans: Epidural (Sagrario Anderson RN) Epidural Positioning: Sitting (Sagrario Anderson RN) LaborFlag: Antepartum (QS system process) Datetime: 04/24/2016 09:47 Pulse: 92 (QS system process) SpO2 (%): 97 (QS system process) LaborFlag: Antepartum (QS system process) Datetime: 04/24/2016 09:45 Monitor Mode: External; Palpation (Sagrario Baidy, RN) Frequency (min): 3-4 (Sagrario Baidy, RN) Quality: Moderate (Sagrario Baidy, RN) Duration (sec): 60-90 (Sagrario Baidy, RN) Duration Criteria: Less than Two 120 Second Contractions (Sagrario Baidy, RN) Pattern: Normal: <= 5 Contractions in 10 Minutes (Sagrario Baidy, RN) Resting Tone (Palpate): Relaxed (Sagrario Baidy, RN) Monitor Mode: External US (Sagrario Baidy, RN) FHR Baseline Rate : 125 (Sagrario Baidy, RN) Variability: Moderate 6-25 bpm (Sagrario Baidy, RN) Accelerations: 15X15 (Sagrario Baidy, RN) Decelerations: None (Sagrario Baidy, RN) Datetime: 04/24/2016 09:44 NBP Sys/Jackie/Mean (mmHg): 131 (QS system process) : 85 (QS system process) : 105 (QS system process) Pulse: 85 (QS system process) LaborFlag: Antepartum (QS system process) Datetime: 04/24/2016 09:42 Pulse: 100 (QS system process) SpO2 (%): 98 (QS system process) Epidural Positioning: Sitting (Sagrario Anderson RN) LaborFlag: Antepartum (QS system process) Datetime: 04/24/2016 09:30 Monitor Mode: External; Palpation (Sagrario Anderson, RN) Frequency (min): 1-3 (Sagrario Anderson, RN) Quality: Moderate (Sagrario Baidy, RN) Duration (sec): 40-110 (Sagrario Baiadiel, RN) Duration Criteria: Less than Two 120 Second Contractions (Sagrario Baiadiel, RN) Pattern: Normal: <= 5 Contractions in 10 Minutes (Sagrario Baidy, RN) Resting Tone (Palpate): Relaxed (Sagrario Baiadiel, RN) Monitor Mode: External US (Sagrario Anderson, RN) FHR Baseline Rate : 125 (Sagrario Baiadiel, RN) Variability: Moderate 6-25 bpm (Sagrario Baidy, RN) Accelerations: None (Sagrario Baidy, RN) Decelerations: None (Sagrario Baidy, RN) Datetime: 04/24/2016 09:25 IV/Blood Work: New IV Bag Hung (Sagrario Baidy, RN) Datetime: 04/24/2016 09:15 Monitor Mode: External; Palpation (Sagrario Baidy, RN) Frequency (min): 3-5 (Sagrario Baidy, RN) Quality: Moderate (Sagrario Baidy, RN) Duration (sec): 70-140 (Sagrario Baidy, RN) Duration Criteria: More than Two 120 Second or Greater Contractions (Sagrario Baidy, RN) Pattern: Normal: <= 5 Contractions in 10 Minutes (Sagrario Baidy, RN) Resting Tone (Palpate): Relaxed (Sagrario Baidy, RN) Monitor Mode: External US (Sagrario Baidy, RN) FHR Baseline Rate : 125 (Sagrario Baidy, RN) Variability: Moderate 6-25 bpm (Sagrario Baidy, RN) Accelerations: None (Sagrario Baidy, RN) Decelerations: None (Sagrario Baidy, RN) Datetime: 04/24/2016 09:14 NBP Sys/Jackie/Mean (mmHg): 122 (QS system process) : 76 (QS system process) : 91 (QS system process) Pulse: 81 (QS system process) LaborFlag: Antepartum (QS system process) Datetime: 04/24/2016 09:00 Monitor Mode: External; Palpation (Sagrario Anderson, RN) Frequency (min): 2-3 (Sagrario Anderson, RN) Quality: Moderate (Sagrario Baidy, RN) Duration (sec): 60-120 (Sagrario Baidy, RN) Duration Criteria: More than Two 120 Second or Greater Contractions (Sagrario Baidy, RN) Pattern: Normal: <= 5 Contractions in 10 Minutes (Sagrario Baidy, RN) Resting Tone (Palpate): Relaxed (Sagrario Justin, RN) Monitor Mode: External US (Sagrario Justin, RN) FHR Baseline Rate : 125 (Sagrario Baidy, RN) Variability: Moderate 6-25 bpm (Sagrario Baidy, RN) Accelerations: None (Sagrario Baidy, RN) Decelerations: None (Sagrario Baidy, RN) Datetime: 04/24/2016 08:59 NBP Sys/Jackie/Mean (mmHg): 125 (QS system process) : 88 (QS system process) : 103 (QS system process) Pulse: 85 (QS system process) Patient Care Comments: pt requesting epidural, IV bolus started. (Sagrario Anderson RN) LaborFlag: Antepartum (QS system process) Datetime: 04/24/2016 08:58 Pain Scale: 5 (Sagrario Anderson RN) Pain Presence: Intermittent (Sagrario Anderson RN) Pain Type: Contraction (Sagrario Anderson RN) Pain Location: Abdomen (Sagrario Anderson RN) LaborFlag: Antepartum (QS system process) Datetime: 04/24/2016 08:45 Monitor Mode: External; Palpation (Sagrario Anderson RN) Frequency (min): 1.5-3 (Sagrario Anderson RN) Quality: Mild/Moderate (Sagrario Anderson RN) Duration (sec): 60-90 (Sagrario Anderson RN) Duration Criteria: Less than Two 120 Second Contractions (Sagrario Baidy, RN) Pattern: Normal: <= 5 Contractions in 10 Minutes (Sagrario Anderson, RN) Resting Tone (Palpate): Relaxed (Sagrario Anderson, RN) Monitor Mode: External US (Sagrario Anderson, RN) FHR Baseline Rate : 125 (Sagrario Anderson, RN) FHR Baseline Changes: Return to Previous Baseline (Sagrario Baiadiel, RN) Variability: Minimal - Undetectable to <=5 bpm (Sagrario Baidy, RN) Accelerations: 15X15 (Sagrario Baiadiel, RN) Decelerations: None (Sagrario Baiadiel, RN) Datetime: 04/24/2016 08:37 Monitor Interventions for UA: [place] Adjusted (Sagrario Anderson, RN) Patient Position/Activity: Tailors (Sagrario Anderson, RN) Datetime: 04/24/2016 08:36 Communication Comments: Orders received for epidural prn for pain. (Sagrario Baidy, RN) Datetime: 04/24/2016 08:34 Dilatation (cm): 3.5 (Sagrario Anderson RN) Effacement (%): 90 (Sagrario Anderson RN) Station: 0 (Sagrario Anderson RN) Exam by: Dr Marques (Sagrario Anderson RN) Membrane Status: Ruptured (Sagrario Anderson RN) Membranes Rupture Method: Artificial (Sagrario Anderson RN) Amniotic Fluid Color: Clear (Sagrario Anderson RN) Amniotic Fluid Amount: Small (Sagrario Anderson RN) Communication Comments: Dr Marques at bedside to perform SVE and AROM (Sagrario Anderson RN) Datetime: 04/24/2016 08:32 I/O Interventions: Up to BR (Sagrario Anderson RN) Datetime: 04/24/2016 08:30 Monitor Mode: External; Palpation (Sagrario Anderson, RN) Frequency (min): 2-3 (Sagrario Baiadiel, RN) Quality: Mild/Moderate (Sagrairo Baidy, RN) Duration (sec): 60-90 (Sagrario Baidy, RN) Duration Criteria: Less than Two 120 Second Contractions (Sagrario Baiadiel, RN) Pattern: Normal: <= 5 Contractions in 10 Minutes (Sagrario Baidy, RN) Resting Tone (Palpate): Relaxed (Sagrario Baiadiel, RN) Monitor Mode: External US (Sagrario Anderson, RN) FHR Baseline Rate : 145 (Sagrario Baiadiel, RN) Variability: Moderate 6-25 bpm (Sagrario Baidy, RN) Accelerations: 15X15 (Sagrario Baidy, RN) Decelerations: Late (Sagrario Baidy, RN) Datetime: 04/24/2016 08:29 NBP Sys/Jackie/Mean (mmHg): 112 (QS system process) : 66 (QS system process) : 83 (QS system process) Pulse: 78 (QS system process) Monitor Interventions for UA: [place] Adjusted (Sagrario Anderson RN) Monitor Interventions for FHR: Ultrasound Adjusted (Sagrario Anderson RN) LaborFlag: Antepartum (QS system process) Datetime: 04/24/2016 08:21 Monitor Interventions for FHR: Ultrasound Adjusted (Sagrario Anderson, RN) Datetime: 04/24/2016 08:20 Patient Care Comments: repositioned to right lateral (Sagrario Anderson, RN) Datetime: 04/24/2016 08:16 NBP Sys/Jackie/Mean (mmHg): 101 (QS system process) : 59 (QS system process) : 74 (QS system process) Pulse: 74 (QS system process) Monitor Interventions for UA: [place] Adjusted (Sagrario Anderson, RN) LaborFlag: Antepartum (QS system process) Datetime: 04/24/2016 08:15 Monitor Mode: External; Palpation (Sagrario Baidy, RN) Frequency (min): 1.5-3 (Sagrario Baidy, RN) Quality: Mild/Moderate (Sagrario Baidy, RN) Duration (sec): 60-90 (Sagrario Baidy, RN) Duration Criteria: Less than Two 120 Second Contractions (Sagrario Baidy, RN) Pattern: Normal: <= 5 Contractions in 10 Minutes (Sagrario Baidy, RN) Resting Tone (Palpate): Relaxed (Sagrario Baidy, RN) Monitor Mode: External US (Sagrario Baidy, RN) FHR Baseline Rate : 145 (Sagrario Baidy, RN) Variability: Moderate 6-25 bpm (Sagrario Baidy, RN) Accelerations: 15X15 (Sagrario Baidy, RN) Decelerations: Late (Sagrario Baidy, RN) Datetime: 04/24/2016 08:12 Monitor Interventions for UA: [place] Adjusted (Sagrario Baidy, RN) Datetime: 04/24/2016 08:11 Pitocin (milliunit): Pitocin Discontinued (Sagrario Anderson RN) Patient Care Comments: pt rolled to back, repositioned to left lateral (Sagrario Anderson RN) Datetime: 04/24/2016 08:08 Strip Reviewed by: Dr Carvajal (Sagrario Anderson RN) Communication: Report Given to @ Dr Marques (Sagrario Anderson RN) Notification Reason: Status Update; Status; Labor Status; Membrane Status; Uterine Activity (Sagrario Anderson RN) Communication Comments: pitocin @ 2 units (Sagrario Anderson RN) Datetime: 04/24/2016 08:00 Monitor Mode: External; Palpation (Sagrario Anderson RN) Frequency (min): 1.5-3 (Sagrario Baidy, RN) Quality: Mild/Moderate (Sagrario Baidy, RN) Duration (sec): 60-120 (Sagrario Baiadiel, RN) Duration Criteria: More than Two 120 Second or Greater Contractions (Sagrario Anderson, RN) Pattern: Normal: <= 5 Contractions in 10 Minutes (Sagrario Baidy, RN) Resting Tone (Palpate): Relaxed (Sagrario Baiadiel, RN) Monitor Mode: External US (Sagrario Anderson, RN) FHR Baseline Rate : 135 (Sagrario Justin, RN) Variability: Moderate 6-25 bpm (Sagrario Baidy, RN) Accelerations: 15X15 (Sagrario Baidy, RN) Decelerations: Late (Sagrario Baiadiel, RN) Pitocin (milliunit): Pitocin Remains (milliunits) @ 2 (Sagrario Anderson, RN) Datetime: 04/24/2016 07:59 NBP Sys/Jackie/Mean (mmHg): 115 (QS system process) : 58 (QS system process) : 83 (QS system process) Pulse: 82 (QS system process) LaborFlag: Antepartum (QS system process) Datetime: 04/24/2016 07:47 Respirations: 16 (Sagrario Anderson RN) Temperature (F): 98.4 (Sagrario Anderson RN) Temperature (C): 36.9 (QS system process) LaborFlag: Antepartum (QS system process) Datetime: 04/24/2016 07:46 Patient Care Comments: repositioned to right lateral (Sagrario Anderson RN) Datetime: 04/24/2016 07:45 NBP Sys/Jackie/Mean (mmHg): 125 (QS system process) : 57 (QS system process) : 82 (QS system process) Pulse: 94 (QS system process) Monitor Mode: External; Palpation (Sagrario Anderson RN) Frequency (min): 1.5-4 (Sagrario Anderson RN) Quality: Mild/Moderate (Sagrario Anderson RN) Duration (sec): 60-100 (Sagrario Anderson RN) Duration Criteria: Less than Two 120 Second Contractions (Sagrario Anderson RN) Pattern: Normal: <= 5 Contractions in 10 Minutes (Sagrario Baidy, RN) Resting Tone (Palpate): Relaxed (Sagrario Anderson, RN) Monitor Mode: External US (Sagrario Anderson, RN) FHR Baseline Rate : 130 (Sagrario Anderson, RN) Variability: Moderate 6-25 bpm (Sagrario Anderson, RN) Accelerations: 15X15 (Sagrario Anderson, RN) Decelerations: Late (Sagrario Anderson, RN) Pitocin (milliunit): Pitocin Remains (milliunits) @ 2 (Sagrario Anderson, LARY) LaborFlag: Antepartum (QS system process) Datetime: 04/24/2016 07:30 Monitor Mode: External; Palpation (Sagrario Anderson, LARY) Frequency (min): 2-3 (Sagrario Anderson, LARY) Quality: Mild/Moderate (Sagrario Anderson RN) Duration (sec): 60-100 (Sagrario Anderson, RN) Duration Criteria: Less than Two 120 Second Contractions (Sagrario Anderson, RN) Pattern: Normal: <= 5 Contractions in 10 Minutes (Sagrario Anderson, RN) Resting Tone (Palpate): Relaxed (Sagrario Anderson, RN) Monitor Mode: External US (Sagrario Anderson, RN) FHR Baseline Rate : 125 (Sagrario Anderson, RN) Variability: Moderate 6-25 bpm (Sagrario Baiadiel, RN) Accelerations: 15X15 (Sagrario Anderson, RN) Decelerations: None (Sagrario Anderson, RN) Pitocin (milliunit): Pitocin Started (milliunits) @ 2 (Sagrario Anderson, RN) Datetime: 04/24/2016 07:29 NBP Sys/Jackie/Mean (mmHg): 115 (QS system process) : 60 (QS system process) : 80 (QS system process) Pulse: 74 (QS system process) LaborFlag: Antepartum (QS system process) Datetime: 04/24/2016 07:20 Monitor Mode: External; Palpation (Leticia Matt, RN) Frequency (min): 2-4 (Leticia Matt, RN) Quality: Mild/Moderate (Leticia Matt, RN) Duration (sec): 60-90 (Leticia Matt, RN) Duration Criteria: Less than Two 120 Second Contractions (Leticia Matt, RN) Pattern: Normal: <= 5 Contractions in 10 Minutes (Leticia Matt, RN) Resting Tone (Palpate): Relaxed (Leticia Mtat, RN) Datetime: 04/24/2016 07:16 Monitor Interventions for UA: [place] Adjusted (Sagrario Baidy, RN) Datetime: 04/24/2016 07:14 Level of Consciousness: Fully Conscious (Sagrario Baidy, RN) DTR's/Clonus: DTRs 2+; No Clonus (Sagrario Baidy, RN) Headache: Denies (Sagrario Baidy, RN) Breath Sounds, Left: Clear and Equal (Sagrario Baidy, RN) Breath Sounds, Right: Clear and Equal (Sagrario Baidy, RN) Nausea/Vomiting: Denies (Sagrario Baidy, RN) RUQ Epigastric Pain: Denies (Sagrario Baidy, RN) Datetime: 04/24/2016 07:10 Communication Comments: Report passed to Elias Anderson RN and care relinquished at this time (Leticia Gutierrez RN)
[2016-04-24] MEDS: ACETAMINOPHEN WITH CODEINE #3 TABLET PO PRN (19:37)
[2016-04-25] MEDS: ACETAMINOPHEN WITH CODEINE #3 TABLET PO PRN ×2 (02:00→07:14)
--- NOTE | 2016-04-25 06:01 | L&D General Admission ---
General Admit Datetime Report Generated by CPN: 04/25/2016 06:00 INFORMATION Patient Age: 25 (04/23/2016 15:24:QS system process) EDC: 04/17/2016 00:00 (04/23/2016 15:53:Clif Baker RN) EDC per Ultrasound: 04/17/2016 00:00 (04/23/2016 15:53:Clif Baker RN) LMP: 07/20/2015 00:00 (04/23/2016 15:53:Clif Baker RN) : 1 (04/23/2016 15:53:Clif Baker RN) Para: 0 (04/23/2016 15:53:Clif Baker RN) Term: 0 (04/23/2016 15:53:Clif Baker RN) : 0 (04/23/2016 15:53:Clif Baker RN) Spontaneous Abortions: 0 (04/23/2016 15:53:Clif Baker RN) Induced Abortions: 0 (04/23/2016 15:53:Clif Baker RN) Livin (04/23/2016 15:53:Clif Baker RN) Cesareans: 0 (04/23/2016 15:53:Clif Baker RN) VBACs: 0 (04/23/2016 15:53:Clif Baker RN) Ectopic: 0 (04/23/2016 15:53:Clif Baker RN) Multiple Births: 0 (04/23/2016 15:53:Clif Baker RN) Baby, Number in Womb: 1 (04/23/2016 15:53:Clif Baker RN) CARE Primary Respiratory Manager: [employer] [facility] (04/23/2016 15:53:Clif Baker RN) Month of 1st Visit: September (04/23/2016 15:53:Clif Baker RN) Adequate Care: Yes (04/23/2016 15:53:Clif Baker RN) Prepregnancy Weight (lb): 108 (04/23/2016 15:53:Clif Baker RN) Prepregnancy Weight (kg): 49.1 (04/23/2016 15:53:QS system process) Height (in): 63 (04/24/2016 15:07:QS system process) ALLERGIES Medication Allergy: Yes (04/23/2016 15:53:Clif Baker RN) Medication Allergies: clindamycin/Anaphylaxis (04/23/2016); amoxicillin/Anaphylaxis (04/23/2016) (04/23/2016 16:23:QS system process) Latex Allergy: Latex Allergies (04/23/2016 15:53:Clif Baker RN) Food Allergies: None (04/23/2016 15:53:Clif Baker RN) Environmental Allergies: Bees, Wasps, Hornets (04/23/2016 15:53:Clif Baker RN) COMMUNICATION Primary Language: Tuvaluan (04/23/2016 15:53:Clif Baker RN) Medical Tx Preferred Language: Tuvaluan (04/23/2016 15:53:Clif Baker RN) DEMOGRAPHICS Address: [address] [place] [id number] (04/23/2016 15:24:QS system process) Zipcode: [address] (04/23/2016 15:24:QS system process) Home (04/23/2016 15:24:QS system process) SSN: [id number] (04/23/2016 15:24:QS system process) Next of Kin Name: DELVIN LAMB (04/23/2016 15:24:QS system process) Next of Kin (04/23/2016 15:24:QS system process) Next of Kin Relationship: MO (04/23/2016 15:24:QS system process) Date of : 1990 (04/23/2016 15:24:QS system process) Marital Status: Single (04/23/2016 15:24:QS system process) Sex: Female (04/23/2016 15:24:QS system process) Race: (04/23/2016 15:24:QS system process) Ethnicity: Non- or (04/23/2016 15:24:QS system process) Synagogue: Other (04/23/2016 15:24:QS system process) DRUG AND ALCOHOL USE Alcohol: No (04/23/2016 15:53:Clif Baker RN) Cigarettes: Current Everyday Smoker. [id number] (04/23/2016 15:53:Clif Baker RN) Marijuana: No (04/23/2016 15:53:Clif Baker RN) Cocaine: No (04/23/2016 15:53:Clif Baker RN) Other Illicit Drugs: No (04/23/2016 15:53:Clif Baker RN) VACCINE HISTORY Influenza Vaccine: Uncertain (04/23/2016 15:53:Clif Baker RN) Pneumococcal Vaccine: Uncertain (04/23/2016 15:53:Clif Baker RN) Tetanus Vaccine: Uncertain (04/23/2016 15:53:Clif Baker RN) Tdap Vaccine: Uncertain (04/23/2016 15:53:Clif Baker RN) Hepatitis B Vaccine: Uncertain (04/23/2016 15:53:Clif Baker RN) Knit Goods Washer: [facility] (04/23/2016 15:53:Clif Baker RN) Feeding Preference: Formula (04/23/2016 15:53:Clif Baker RN) Benefit of Breast Feed Discussed: Yes (04/23/2016 15:53:Clif Baker RN) Circumcision: Yes (04/23/2016 15:53:Clif Baker RN) Classes Attended: No (04/23/2016 15:53:Clif Baker RN) Tubal Ligation: No (04/23/2016 15:53:Clif Baker RN) Tubal Authorization Signed: N/A (04/23/2016 15:53:Clif Baker RN) Consent: N/A (04/23/2016 15:53:Clif Baker RN) Consent Signed: N/A (04/23/2016 15:53:Clif Baker RN) Pain Management Plans: Epidural (04/23/2016 15:53:Clif Baker RN) Plans for Labor and Delivery: None (04/23/2016 15:53:Clif Baker RN) Support Person: Analia Lamb (04/23/2016 15:53:Clif Baker RN) Support Person Relationship: Mother (04/23/2016 15:53:Clif Baker RN) Cultural/Spritual Practice: No (04/23/2016 15:53:Clif Baker RN) Spir/Cult Dietary Needs: No (04/23/2016 15:53:Clif Baker RN) LIVING SITUATION/DISCHARGE PLAN Living Arrangements: House (04/23/2016 15:53:Clif Baker RN) Adequate Access to:: Electric; Heat; Refrigeration; Plumbing/Running water; Phone; Transportation (04/23/2016 15:53:Clif Baker RN) WIC Program: Yes (04/23/2016 15:53:Clif Baker RN) Discharge Coronary Care Unit Nurse Person: Analia Lamb (04/23/2016 15:53:Clif Baker RN) Person to Help after Discharge: Analia Lamb (04/23/2016 15:53:Clif Baker RN) Currently Using Commun Resources: Yes (04/23/2016 15:53:Clif Baker RN) Outside Agency/Polysomnographer: No (04/23/2016 15:53:Clif Baker RN) Car Seat for Discharge: Yes (04/23/2016 15:53:Clif Baker RN) Adoption Requested: No (04/23/2016 15:53:Clif Baker RN) Pt Contact w/ Post : N/A (04/23/2016 15:53:Clif Baker RN) LABS Blood Type: O Positive (04/23/2016 15:53:ALEXANDRA Millard) Antibody Screen: negative (04/23/2016 15:53:Sagrario Anderson RN) Rho(G) this : Not Applicable (04/23/2016 15:53:Sagrario Anderson RN) Hemoglobin: 11.5 L (04/23/2016 16:52:QS system process) Hematocrit: 34.8 L (04/23/2016 16:52:QS system process) MCV: 95 (04/23/2016 16:52:QS system process) Group Beta Strep: Neg (04/23/2016 15:53:ALEXANDRA Millard) Gonorrhea: Negative (04/23/2016 15:53:ALEXANDRA Millard) Chlamydia: Negative (04/23/2016 15:53:ALEXANDRA Millard) RPR/VDRL: Nonreactive (04/23/2016 15:53:ALEXANDRA Millard) HIV Results: Neg (04/23/2016 15:53:ALEXANDRA Millard) Hepatitis B: Negative (04/23/2016 15:53:ALEXANDRA Millard) Rubella: Immune (04/23/2016 15:53:ALEXANDRA Millard) OB/PREVIOUS HISTORY Age of Menses Onset: 13 (04/23/2016 15:53:Clif Baker RN) Menses Duration: 4 (04/23/2016 15:53:Clif Baker RN) Menses Amount: Moderate (04/23/2016 15:53:Clif Baker RN) LMP Regular: No (04/23/2016 15:53:Clif Baker RN) Date Pos Preg Test: 09/02/2015 00:00 (04/23/2016 15:53:Clif Baker RN) BCP at Conception: No (04/23/2016 15:53:Clif Baker RN) LMP: 07/20/2015 00:00 (04/23/2016 15:53:Clif Baker RN) Previous Procedures: None (04/23/2016 15:53:Clif Baker RN) Current Procedures: Ultrasound; NST (04/23/2016 15:53:Clif Baker RN) History of Previous : No (04/23/2016 15:53:Clif Baker RN) History of Gestational Diabetes: Yes (04/23/2016 15:53:Clif Baker RN) History of PIH: No (04/23/2016 15:53:Clif Baker RN) History of Incompetent Cervix: No (04/23/2016 15:53:Clif Baker RN) History of Placenta Previa/Abrup: No (04/23/2016 15:53:Clif Baker RN) History of Macrosomia: No (04/23/2016 15:53:Clif Baker RN) History of IUGR: No (04/23/2016 15:53:Clif Baker RN) History of Hemorrhage: Unknown (04/23/2016 15:53:Clif Baker RN) History of Loss/Stillborn: No (04/23/2016 15:53:Clif Baker RN) History of : No (04/23/2016 15:53:Clif Baker RN) History of D (Rh) Sensitization: No (04/23/2016 15:53:Clif Baker RN) History Recurrent Loss/Stillborn: No (04/23/2016 15:53:Clif Baker RN) History Depression/PP Depression: Unknown (04/23/2016 15:53:Clif Baker RN) History of Uterine Anomaly/AYO: No (04/23/2016 15:53:Clif Baker RN) History of Infertility: No (04/23/2016 15:53:Clif Baker RN) History of ART Treatment: No (04/23/2016 15:53:Clif Baker RN) History of AYO: No (04/23/2016 15:53:Clif Baker RN) Comments Obstetrical History: G1- current (04/23/2016 15:53:Sargario Anderson RN) MEDICAL HISTORY Med Hx Diabetes: Yes (04/23/2016 15:53:Sagrario Anderson RN) Diabetes Type: Gestational Diabetes (04/23/2016 15:53:Clif Baker RN) Med Hx Hypertension: No (04/23/2016 15:53:Clif Baker RN) Med Hx Heart Disease: No (04/23/2016 15:53:Clif Baker RN) Med Hx Autoimmune Disorder: No (04/23/2016 15:53:Clif Baker RN) Med Hx Kidney Disease/UTI: No (04/23/2016 15:53:Clif Baker RN) Med Hx Neurologic/Epilepsy: No (04/23/2016 15:53:Clif Baker RN) Med Hx Psychiatric Disorders: No (04/23/2016 15:53:Clif Baker RN) Med Hx Hepatitis/Liver Disease: No (04/23/2016 15:53:Clif Baker RN) Med Hx Varicosities/Phlebitis: No (04/23/2016 15:53:Clif Baker RN) Med Hx Thyroid Dysfunction: No (04/23/2016 15:53:Clif Baker RN) Med Hx Trauma/Violence: No (04/23/2016 15:53:Clif Baker RN) Med Hx Blood Transfusion: No (04/23/2016 15:53:Clif Baker RN) Med Hx Pulmonary (Asthma,TB): No (04/23/2016 15:53:Clif Baker RN) Med Hx Breast: No (04/23/2016 15:53:Clif Baker RN) Med Hx [employer] WORK[employer] Surgery: Yes (04/23/2016 15:53:Clif Baker RN) Med Hx Hospitalization/Surgery: Yes (04/23/2016 15:53:Clif Baker RN) Med Hx Anesthetic Complications: No (04/23/2016 15:53:Clif Baker RN) Med Hx Abnormal Pap Smear: Yes (04/23/2016 15:53:Clif Baker RN) Other Medical Diseases: No (04/23/2016 15:53:Clif Baker RN) Med Hx Significant Family Hx: No (04/23/2016 15:53:Clif Baker RN) Details of Med/Surg Hx: [place] Teeth Removal, H/O cervical cancer age 23. Biopsy (04/23/2016 15:53:ALEXANDRA Millard) INFECTIOUS HISTORY Inf Hx Gonorrhea: No (04/23/2016 15:53:Clif Baker RN) Inf Hx Chlamydia: No (04/23/2016 15:53:Clif Baker RN) Inf Hx Syphilis: No (04/23/2016 15:53:Clif Baker RN) Inf Hx HIV/AIDS: No (04/23/2016 15:53:Clif Baker RN) Inf Hx Human Papilloma Virus: No (04/23/2016 15:53:Clif Baker RN) Inf Hx Pt/Partner Genital Herpes: No (04/23/2016 15:53:Clif Baker RN) Inf Hx Tuberculosis/Exposure: No (04/23/2016 15:53:Clif Baker RN) Inf Hx Hepatitis B,C: No (04/23/2016 15:53:Clif Baker RN) Inf Hx Rash or Viral Illness: No (04/23/2016 15:53:Clif Baker RN) GENETIC HISTORY Gen Hx Age >=35 at TIFF[place]: No (04/23/2016 15:53:Clif Baker RN) Gen Hx Thalassemia: No (04/23/2016 15:53:Clif Baker RN) Gen Hx Congenital Heart Defect: No (04/23/2016 15:53:Clif Baker RN) Gen Hx Neural Tube Defect: No (04/23/2016 15:53:Clif Baker RN) Gen Hx Down's Syndrome: No (04/23/2016 15:53:Clif Baker RN) Gen Hx Av-Sachs: No (04/23/2016 15:53:Clif Baker RN) Gen Hx Anselmo: No (04/23/2016 15:53:Clif Baker RN) Gen Hx Familial Dysautonomia: No (04/23/2016 15:53:Clif Baker RN) Gen Hx Sickle Cell Disease/Trait: No (04/23/2016 15:53:Clif Baker RN) Gen Hx Hemophilia/Blood Disorder: No (04/23/2016 15:53:Clif Baker RN) Gen Hx Muscular Dystrophy: No (04/23/2016 15:53:Clif Baker RN) Gen Hx Cystic Fibrosis: No (04/23/2016 15:53:Clif Baker RN) Gen Hx [place] Chorea: No (04/23/2016 15:53:Clif Baker RN) Gen Hx Mental Retardation/Autism: No (04/23/2016 15:53:Clif Baker RN) Gen Hx Tested for Fragile X: No (04/23/2016 15:53:Clif Baker RN) Gen Hx Other Inher/Chromosomal: No (04/23/2016 15:53:Clif Baker RN) Gen Hx Maternal Metabolic DO: No (04/23/2016 15:53:Clif Baker RN) Gen Hx Pt Father or FOB Defect: No (04/23/2016 15:53:Clif Baker RN) Gen Hx Medications: None (04/23/2016 15:53:Clif Baker RN)
--- NOTE | 2016-04-25 06:01 | L&D Current Admission ---
Current Admit Datetime Report Generated by CPN: 04/25/2016 06:00 ADMISSION INFORMATION Current Admit Date/Time: 04/23/2016 13:55 (04/23/2016 16:01:Clif Baker RN) Reason for Admission: Induction of Labor (04/23/2016 16:01:Clif Baker RN) Chief Complaint: Scheduled Induction of Labor (04/23/2016 16:00:Clif Baker RN) Medications During : Diphenhydramine (Benedryl); Ferrous Sulfate (Iron); Vitamin; Acetaminophen (Tylenol) (04/23/2016 16:01:Clif Baker RN) EGA per Dates: 40.6 (04/23/2016 16:01:QS system process) EGA per US: 40.6 (04/23/2016 16:01:QS system process) Method of Arrival: Ambulatory (04/23/2016 16:01:Clif Baker RN) Admitted From: Home (04/23/2016 16:01:Clif Baker RN) Reason for Induction- Other: GDM diet controlled (04/23/2016 16:01:Leticia Gutierrez RN) Records Available: Yes (04/23/2016 16:01:Clif Baker RN) General Admission Information: Reviewed (04/23/2016 16:01:Clif Baker RN) BELONGINGS/ADVANCED DIRECTIVES Valuables/Personal Effects: Purse/Wallet; Cell Phone (04/23/2016 16:01:Clif Baker RN) Disposition of Belongings: Kept with Patient (04/23/2016 16:01:Clif Baker RN) Advance Direct for Healthcare: No, and Wants No Information (04/23/2016 16:01:Clif Baker RN) Durable Power of Recycle Driver: No (04/23/2016 16:01:Clif Baker RN) Living Will: No (04/23/2016 16:01:Clif Baker RN) Organ Donor: Yes (04/23/2016 16:01:Clif Baker RN) Pt Rights Information Given: Yes (04/23/2016 16:01:Clif Baker RN) Pt Understands Pt Rights: Yes (04/23/2016 16:01:Clif Baker RN) LEARNING ASSESSMENT Knowledge Level: Understands L_D Process; Understands Care Activities; Had Pre-Hospital Education; Understands Diagnosis (04/23/2016 16:01:Clif Baker RN) Barriers to Learning: None (04/23/2016 16:01:Clif Baker RN) Learning Readiness: Motivated (04/23/2016 16:01:Clif Baker RN) Learns Best By: 1 to 1 Instruction; Reading; Videos; Group Discussion; Demonstration (04/23/2016 16:01:Clif Baker RN) Learning Needs: Labor and Delivery Process; Pain Management; Symptoms to Report; Treatment Plan; Medication; Diagnosis; Nutrition; Equipment; Care; Community Resources; Other (04/23/2016 16:01:Clif Bakre RN) DOMESTIC VIOLANCE SCREENING Dom Viol Threatened/Hurt: No (04/23/2016 16:01:Clif Baker RN) Hx of Abuse/Neglect past 2yrs: No (04/23/2016 16:01:Clif Baker RN) Feel Unsafe Going Home: No (04/23/2016 16:01:Clif Baker RN) Addt'l Observ Indicating Abuse: No (04/23/2016 16:01:Clif Baker RN) Considered Personal Harm/Suicide: No (04/23/2016 16:01:Clif Baker RN) NUTRITIONAL/FUNCTIONAL SCREENING Problem with Appetite >5 Days: No (04/23/2016 16:01:Clif Baker RN) Chew/Swallow Difficulties: No (04/23/2016 16:01:Clif Baker RN) Inappropriate Wt Gain/Loss: No (04/23/2016 16:01:Clif Bakre RN) Presence Skin Breakdown/Ulcer: No (04/23/2016 16:01:Clif Baker RN) Special Diet: No (04/23/2016 16:01:Clif Baker RN) Pt Requests Well Testing Operator Visit: No (04/23/2016 16:01:Leticia Gutierrez RN) Hx of Any of the Following?: Diabetes (04/23/2016 16:01:Clif Baker RN) New Diagnosis of: Gest Diabetes (04/23/2016 16:01:Clif Baker RN) Requires Assist w/Ambulation: No (04/23/2016 16:01:Clif Baker RN) Uses Assist Device to Ambulate: No (04/23/2016 16:01:Clif Baker RN) Pt Requires Help w/ADL's: No (04/23/2016 16:01:Clif Baker RN)
--- NOTE | 2016-04-25 06:15 | L&D Care Plan ---
LD CARE PLANS Datetime Report Generated by CPN: 04/25/2016 06:15 Datetime: 04/23/2016 17:17 Pain State: Actual (Christina Bellavance, RNC) Related To: Labor and Delivery Process; Complication(s) of ; Treatment and Procedures; Post (Christina Bellavance, RNC) Goal(s): Patients Pain will be Assessed and Managed; Patient will Verbalize Adequate Relief of Pain or the Ability to [place] with Current Pain (Christina Bellavance, RNC) Interventions: Assess Pain Severity on Scale of 0 (None) to 5 (Severe); Assess Type, Location and Intensity of Pain Each Time Client Reports Discomfort and Notify Provider if Unusal Pain Develops; Encourage Proper Breathing and Relaxation Techniques; Offer Alternatives Such as Repositioning, Calm Environment, Massages, Diversional Activities, Ice Pack, Splinting, and Ambulation; Administer Analgesics as Ordered; Assist with Epidural Placement as Appropriate; Evaluate Therapeutic Effectiveness of Medication and Treatments (ALEXANDRA Millard) Outcome: Patient will Report Absence or Relief of Pain Consistent with Established Pain Goal (ALEXANDRA Millard) Status: Ongoing (ALEXANDRA Millard) Outcome: Patient will have a Decrease in Signs and Symptoms of Discomfort (ALEXANDRA Millard) Status: Ongoing (ALEXANDRA Millard) Outcome: Pain will be Controlled During Procedures (ALEXANDRA Millard) Status: Ongoing (ALEXANDRA Millard) Anxiety State: Actual (ALEXANDRA Millard) Related To: Labor and Delivery Process; Fear of Unknown; Situational Crisis; Medical Interventions (ALEXANDRA Millard) Goal(s): Patient will have Decreased Anxiety and be able to Function at Acceptable Levels (ALEXANDRA Millard) Interventions: Assess Verbal and Nonverbal Behavioral Indicators of Anxiety; Assist Patient to Identify and Verbalize Symptoms of Anxiety; Identify and Demonstrate Techniques to Control Anxiety; Assist Patient with Coping Mechanisms to Manage Anxiety; Provide Theraputic Touch for the Patient; Explain to Patient, Using a Calm Reassuring Approach and Nonmedical Terms, All Activities, Procedures, and Concerns; Instruct Patient and Family about Post Discharge Care, Limitations, Symptoms to Report and Resources Available (ALEXANDRA Millard) Outcome: Patient will Identify, Verbalize and Demonstrate Techniques to Control Anxiety (ALEXANDRA Millard) Status: Ongoing (ALEXANDRA Millard) Outcome: Patient's Posture, Facial Expressions, Gestures and Activity Level will Reflect Decreased Anxiety (ALEXANDRA Millard) Status: Ongoing (ALEXANDRA Millard) Outcome: Patient will Verbalize a Sense of Control and/or Acceptance of the Situation (ALEXANDRA Millard) Status: Ongoing (ALEXANDRA Millard) Outcome: Patient will Identify and Utilize Support Person (ALEXANDRA Millard) Status: Ongoing (ALEXANDRA Millard) Knowledge Deficit State: Actual (ALEXANDRA Millard) Related To: Labor and Delivery Process; Treatment and Procedures; Impending Alterations in Family Dynamics; Feeding and Infant Care; Community Resources and Available Support Mechanisms (ALEXANDRA Millard) Goal(s): Patient will Accurately Verbalize Understanding of Plan of Care and Treatment; Patient and Family will Accurately Verbalize Understanding of the Disease Process (ALEXANDRA Millard) Interventions: Assess Motivation and Willingness of Patient/Family to Learn; Assess Preferred Learning Mode: One to One Instruction, Reading, Videos, Group Discussion or Demonstration; Assess Barriers to Learning: Pain, Emotional State, Language Barrier, Cognitive Impairment, Visual or Hearing Deficits; Assess Patient and Family Knowledge of Disease Process, Medications and Treatment; Discuss Therapy and/or Treatment Options, Describe Rationale Behind Management, Therapy and Treatment Recommendations; Instruct Patient and Family on Signs and Symptoms to Report; Instruct Patient and Family on Medication Effects and Side Effects; Provide Appropriate and Timely Education Using Multiple Techniques; Provide Patient and Family with Support Group Information and Resources; Give Clear and Thorough Explanations and Demonstrations (ALEXANDRA Millard) Outcome: Patient and Family will Verbalize Understanding of Condition, Treatment and Signs and Symptoms to Report (ALEXANDRA Millard) Status: Ongoing (ALEXANDRA Millard) Outcome: Patient will Identify Perceived Learning Needs and Express Motivation to Learn (ALEXANDRA Millard) Status: Ongoing (ALEXANDRA Millard) Outcome: Patient will Verbalize Understanding of Desired Content, and/or Performs Desired Skill Prior to Discharge (ALEXANDRA Millard) Status: Ongoing (ALEXANDRA Millard) Parenting Impaired State: Risk For (ALEXANDRA Millard) Related To: Apprehension Related to Care (ALEXANDRA Millard) Goal(s): Parents will Demonstrate Progressive Parenting Behaviors (ALEXANDRA Millard) Interventions: Assess for Adequacy of Support Systems; Observe and Encourage Patient/Family Infant Attachment and Bonding Activities and Provide Feedback; Assess Patient/Family Understanding of 's Condition and Provide Accurate Information About Condition, Treatment and Prognosis; Assess for Patient/Family Behaviors that May Indicate Lack of Attachment; Provide a Safe Non-judgmental Environment for Patient/Family to Discuss Concerns; Promote Patient/Family Cohesiveness by Encouraging Discussion and Problem Solving; Volleyball Assembler Referral as Indicated (ALEXANDRA Millard) Outcome: Patient/Family will Discuss Their Fears and the Possibility of Difficulties with Parenting (ALEXANDRA Millard) Status: Ongoing (ALXEANDRA Millard) Outcome: Patient/Family will Exhibit Appropriate Bonding Behaviors with Infant (ALEXANDRA Millard) Status: Ongoing (ALEXANDRA Millard) Outcome: Patient/Family will Verbalize Positive Feelings and Demonstrate Affection and Caring Toward Infant (ALEXANDRA Millard) Status: Ongoing (ALEXANDRA Millard)
[2016-04-25 08:00] LABS: HEMATOCRIT 25.8 % (36.0-47.0); HGB HCT DIFFERENCE 0.3; MEAN CORPUSCULAR HEMOGLOBIN 32.1 pg (27.0-33.4); MEAN CORPUSCULAR HGB CONC 33.5 g/dL (32.0-36.0); MEAN CORPUSCULAR VOLUME 96 fl (80-97); RED BLOOD COUNT 2.69 10^6/uL (3.72-5.28); RED CELL DISTRIBUTION WIDTH 13.2 % (11.5-14.0); WHITE BLOOD COUNT 11.5 10^3/uL (4.0-10.5)
[2016-04-25 08:19] LABS: HEMOGLOBIN 8.7 g/dL (12.0-15.5)
[2016-04-25] MEDS: SENNOSIDES/DOCUSATE 8.6-50 MG 1 EACH TABLET PO SCH (09:14)
[2016-04-25] MEDS: DOCUSATE SODIUM 100 MG CAPSULE PO SCH ×2 (09:14→17:08)
[2016-04-25] MEDS: PRENATAL VITAMIN W-O CA NO5/FE FUMARATE/FA CAPSULE PO SCH (09:14)
[2016-04-25] MEDS: FERROUS SULFATE 325 MG TABLET PO SCH ×2 (09:15→17:08)
--- NOTE | 2016-04-25 09:21 | PDOC PROGRESS REPORT ---
Subjective-OB Subjective: Post Delivery Day: 25 year old. Denies any needs at this time Doing well, no c/o, asking about baby and him spitting up, scant lochia, ambulating, eating well Physical Exam (OB) Vital Signs: Temp Pulse Resp BP Pulse Ox 98.1 F 77 16 114/65 97 04/25/16 07:38 04/25/16 07:38 04/25/16 07:38 04/25/16 07:38 04/25/16 07:38 Intake & Output 04/24/16 04/25/16 04/26/16 06:59 06:59 06:59 Weight 67.5 kg - Lochia Lochia Amount: Scant < 10 ml Lochia Color: Rubra/Red - Abdomen Description: Tender, Soft, Round Hernia Present: No Fundal Description: Firm, Midline Fundal Height: u/u - u/2 Objective-Diagnostic Laboratory: 04/25/16 07:17 04/25/16 07:17 WBC 11.5 H RBC 2.69 L Hgb 8.7 L D Hct 25.8 L MCV 96 MCH 32.1 MCHC 33.5 RDW 13.2 Plt Count 145 L Assessment and Plan(PN) - Assessment and Plan (1) Anemia due to acute blood loss Is this a current diagnosis for this admission?: Yes (2) Gestational diabetes Qualifiers: Trimester: second trimester Is this a current diagnosis for this admission?: Yes (3) Delivery normal Is this a current diagnosis for this admission?: Yes - Time Spent with Patient Time with patient: Less than 15 minutes Medications reviewed and adjusted accordingly: Yes - Disposition Anticipated Discharge: Home Within: within 48 hours
[2016-04-25] MEDS ORDERED: IBUPROFEN 800 MG TABLET PO SCH (10:00)
[2016-04-25] MEDS: IBUPROFEN 800 MG TABLET PO SCH ×2 (13:17→21:45)
[2016-04-25] MEDS ORDERED: HYDROCODONE/ACETAMINOPHEN 5-325 MG TABLET PO PRN ×2 (22:08)
[2016-04-26] MEDS: IBUPROFEN 800 MG TABLET PO SCH (05:56)
[2016-04-26 09:42] VITALS: BP 113/62
[2016-04-26] MEDS: DOCUSATE SODIUM 100 MG CAPSULE PO SCH (09:51)
[2016-04-26] MEDS: SENNOSIDES/DOCUSATE 8.6-50 MG 1 EACH TABLET PO SCH (09:51)
[2016-04-26] MEDS: PRENATAL VITAMIN W-O CA NO5/FE FUMARATE/FA CAPSULE PO SCH (09:51)
[2016-04-26] MEDS: FERROUS SULFATE 325 MG TABLET PO SCH (09:51)
--- NOTE | 2016-04-26 10:05 | PDOC DISCHARGE SUMMARY ---
Final Diagnosis Discharge Date: 04/26/16 - Final Diagnosis (1) Anemia due to acute blood loss Is this a current diagnosis for this admission?: Yes (2) Delivery normal Is this a current diagnosis for this admission?: Yes (3) Gestational diabetes Is this a current diagnosis for this admission?: Yes Discharge Data - Discharge Medication Home Medications: Iron 18 mg PO DAILY 04/23/16 Pnv No.122/Iron/Folic Acid [ Multi Tablet] 1 each PO DAILY 04/23/16 Reason(s) for Admission: Induction of Labor Procedures: None Intrapartum Procedure(s): Spontaneous Vaginal Delivery Complication(s): Laceration-Perineal Laceration-Degree: 1st - Data Baby 1 Male at 1 minute: 8 at 5 minutes: 9 Weight: 3020 kg Home with Mother: Yes Complications: No - Diagnosis Test Laboratory: Temp Pulse Resp BP Pulse Ox 97.8 F 72 16 113/62 100 04/26/16 09:36 04/26/16 09:36 04/26/16 09:36 04/26/16 09:36 04/26/16 09:36 04/23/16 04/23/16 04/25/16 15:41 16:52 07:17 RBC 3.65 L 2.69 L Hgb 11.5 L 8.7 L D Hct 34.8 L 25.8 L Urine Opiates Screen NEGATIVE - Discharge information/Instructions Discharge Activity: Activity As Tolerated, No Lifting Over 10 Pounds, Pelvic Rest, No tub bath Discharge Diet: Regular Disposition: HOME, SELF-CARE Follow up with: [facility] in: 4
== END 2016-04-26 11:41 | disposition home or self-care (01) | DRG 775 ==
LOC: LR 15:23 → 2S 04-24 14:55
PROVIDERS: ADMIT Specialist; ATTEND Specialist
PROC: 10E0XZZ Delivery of Products of Conception, External Approach (ICD-10-PCS; principal; 2016-04-24)
PROC: 0HQ9XZZ Repair Perineum Skin, External Approach (ICD-10-PCS; 2016-04-24)
DX: O48.0 Post-term pregnancy (principal); Z3A.41 41 weeks gestation of pregnancy; O24.420 Gestational diabetes mellitus in childbirth, diet controlled; O70.0 First degree perineal laceration during delivery; O69.81X0 Labor and delivery complicated by cord around neck, without compression, not applicable or unspecified; O99.02 Anemia complicating childbirth; D64.9 Anemia, unspecified; Z37.0 Single live birth
CPT/HCPCS: 36415; 80307; 81005; 82962; 85025; 85027; 86592; 86850; 86900; 86901; 88307; 94760; J2300; J2370; J2550; J2590; J3010; J3490

== ENCOUNTER 2018-02-01 10:04 | Emergency (ER) | payer MEDICAID ==
[2018-02-01] MEDS ORDERED: LIDOCAINE 1% INJ-PF (10 MG/ML) 30 ML SDV INJ ONE (10:53)
--- NOTE | 2018-02-01 10:54 | ER Document Report ---
ED Medical Screen (RME) - General Chief Complaint: Abdominal Pain Stated Complaint: BACK PAIN Time Seen by Provider: 02/01/18 10:44 Notes: 27 years old 27 years old female presents today with right flank pain dysuria and frequency and abscess in the groin. For the last few days. Examination right flank tenderness noted. TRAVEL OUTSIDE OF THE [place] IN LAST 30 DAYS: No - Related Data Allergies/Adverse Reactions: amoxicillin Adverse Reaction (Verified 02/01/18 10:06) Anaphylaxis clindamycin Adverse Reaction (Verified 02/01/18 10:06) Anaphylaxis Physical Exam - Vital signs Vitals: Temp Pulse Resp BP Pulse Ox 97.9 F 107 H 16 124/78 100 02/01/18 10:16 02/01/18 10:16 02/01/18 10:16 02/01/18 10:16 02/01/18 10:16 Course - Vital Signs Vital signs: Temp Pulse Resp BP Pulse Ox 97.9 F 107 H 16 124/78 100 02/01/18 10:16 02/01/18 10:16 02/01/18 10:16 02/01/18 10:16 02/01/18 10:16 Doctor's Discharge - Discharge Referrals: RAJ RANDOLPH MD [Primary Care Provider] - Follow up as needed
[2018-02-01 11:28] LABS: APPEARANCE,URINE SLIGHTLY-CLOUDY; BILIRUBIN,URINE MODERATE (NEGATIVE); COLOR,URINE YELLOW; GLUCOSE, URINE NEGATIVE (NEGATIVE); KETONES,URINE NEGATIVE (NEGATIVE); LEUKOCYTE ESTERASE,URINE NEGATIVE (NEGATIVE); NITRITE,URINE NEGATIVE (NEGATIVE); PROTEIN,URINE NEGATIVE (NEGATIVE); URINE SPECIFIC GRAVITY 1.026; UROBILINOGEN,URINE NEGATIVE mg/dL (<2.0)
[2018-02-01 12:39] LABS: ABSOLUTE BASOPHILS # (AUTO) 0.1 10^3/uL (0.0-0.2); ABSOLUTE EOSINOPHILS # (AUTO) 0.1 10^3/uL (0.0-0.6); ABSOLUTE LYMPHOCYTES (AUTO) 1.6 10^3/uL (0.5-4.7); ABSOLUTE MONOCYTES (AUTO) 0.8 10^3/uL (0.1-1.4); ABSOLUTE NEUT (AUTO) 7.3 10^3/uL (1.7-8.2); BASOPHILS % (AUTO) 0.5 % (0-2); EOSINOPHILS % (AUTO) 1.4 % (0-6); HEMATOCRIT 41.6 % (36.0-47.0); LYMPHOCYTES % (AUTO) 16.5 % (13-45); MEAN CORPUSCULAR HEMOGLOBIN 30.6 pg (27.0-33.4); MEAN CORPUSCULAR HGB CONC 33.6 g/dL (32.0-36.0); MEAN CORPUSCULAR VOLUME 91 fl (80-97); MONOCYTES % (AUTO) 8.1 % (3-13); PLATELET COUNT 245 10^3/uL (150-450); RED BLOOD COUNT 4.57 10^6/uL (3.72-5.28); RED CELL DISTRIBUTION WIDTH 14.2 % (11.5-14.0); SEGMENTED NEUTROPHILS % (AUTO) 73.5 % (42-78); TOTAL CELLS COUNTED % (AUTO) 100 %; WHITE BLOOD COUNT 9.9 10^3/uL (4.0-10.5)
[2018-02-01] MEDS ORDERED: ACETAMINOPHEN 325 MG TABLET PO ONE (12:42)
[2018-02-01 12:59] LABS: ALANINE AMINOTRANSFERASE 19 U/L (9-52); ALBUMIN 4.7 g/dL (3.5-5.0); ALKALINE PHOSPHATASE 60 U/L (38-126); ANION GAP 13 (5-19); ASPARTATE AMINO TRANSFERASE 17 U/L (14-36); BILIRUBIN,DIRECT 0.3 mg/dL (0.0-0.4); BILIRUBIN,TOTAL 1.6 mg/dL (0.2-1.3); BLOOD UREA NITROGEN 9 mg/dL (7-20); CALCIUM 9.9 mg/dL (8.4-10.2); CARBON DIOXIDE 28 mmol/L (22-30); CHLORIDE 100 mmol/L (98-107); GLUCOSE 97 mg/dL (75-110); LIPASE 51.7 U/L (23-300); SODIUM 141.1 mmol/L (137-145); TOTAL PROTEIN 7.9 g/dL (6.3-8.2)
--- NOTE | 2018-02-01 14:02 | ER Document Report ---
ED General - General Chief Complaint: Abdominal Pain Stated Complaint: BACK PAIN Time Seen by Provider: 02/01/18 10:44 Notes: Patient says she thinks she has a kidney infection. She is complaining of pain in her back and her stomach hurts. She has not noted blood in the toilet after she urinated. She has felt chills and sweats, although she has not taken her temperature. She has had nausea and is vomited a couple of times. She has not had a lot of urinary tract or kidney infections in the past. Also, patient has what she believes is an abscess of the inner right thigh. The swollen red area has been present for about 4-5 days. Very tender to the touch. TRAVEL OUTSIDE OF THE [place] IN LAST 30 DAYS: No - Related Data Allergies/Adverse Reactions: amoxicillin Adverse Reaction (Verified 02/01/18 10:06) Anaphylaxis clindamycin Adverse Reaction (Verified 02/01/18 10:06) Anaphylaxis Past Medical History - Social History Smoking Status: Current Every Day Smoker Chew tobacco use (# tins/day): No Frequency of alcohol use: None Drug Abuse: None Family History: Reviewed & Not Pertinent Patient has suicidal ideation: No Patient has homicidal ideation: No Past Surgical History: Reports: [facility] Review of Systems - Review of Systems Notes: REVIEW OF SYSTEMS: CONSTITUTIONAL : Denies fever, but has chills and sweats. EENT: Denies eye, ear, nose or mouth or throat pain or other symptoms. CARDIOVASCULAR: Denies chest pain. RESPIRATORY: Denies cough, chest congestion, or shortness of breath. GASTROINTESTINAL: Denies abdominal pain but does have nausea and vomiting, no diarrhea. GENITOURINARY: See HPI. MUSCULOSKELETAL: Has bilateral back pain in the lumbar region of the back. Denies joint pain or swelling. SKIN: Denies rash or skin lesions. NEUROLOGICAL: Denies LOC or altered mental status. Mild headache. Denies sensory loss or motor deficits. ALL OTHER SYSTEMS REVIEWED AND NEGATIVE. Physical Exam - Vital signs Vitals: Temp Pulse Resp BP Pulse Ox 97.9 F 107 H 16 124/78 100 02/01/18 10:16 02/01/18 10:16 02/01/18 10:16 02/01/18 10:16 02/01/18 10:16 Interpretation: Normal, Tachycardic - Minimal at 107. Notes: PHYSICAL EXAMINATION: GENERAL: Well-appearing, in no acute distress. HEAD: Atraumatic, normocephalic. ENT: oropharynx clear without exudates. Moist mucous membranes. NECK: Normal range of motion, supple. LUNGS: Breath sounds clear and equal bilaterally. HEART: Regular rate and rhythm without murmurs. ABDOMEN: Soft, nontender. No guarding or rebound. No masses. BACK: Mild tenderness to percussion in the lumbar back region bilaterally. No other back pain. EXTREMITIES: Normal range of motion without pain. NEUROLOGICAL: Normal speech, normal gait. Normal sensory, motor, and reflex exams. Awake, alert, and oriented x3. Cranial nerves normal. PSYCH: Normal mood, normal affect. SKIN: Warm, dry, no rashes. Patient has small couple of swollen areas that are touching each other and are by about a centimeter each. They are both about a centimeter in diameter, pink, swollen, and tender to the touch. I think I can feel fluctuance in each of them. Course - Vital Signs Vital signs: Temp Pulse Resp BP Pulse Ox 98.4 F 73 16 111/55 L 100 02/01/18 14:23 02/01/18 14:23 02/01/18 14:23 02/01/18 14:23 02/01/18 14:23 - Laboratory Result Diagrams: 02/01/18 12:23 02/01/18 12:23 Laboratory results interpreted by me: 02/01/18 02/01/18 02/01/18 11:00 12:23 12:23 RDW 14.2 H Total Bilirubin 1.6 H Urine Bilirubin MODERATE H Procedures - Incision and Drainage Right Thigh Time completed: 12:30 Type: Simple, Multiple - 2 Anesthetic type: 1% Lidocaine mL's of anesthetic: 1 Blade size: 11 I&D procedure: Betadine prep applied Incision Method: Incision made by scalpel Amount/type of drainage: Droplet purulent from both sites Notes: 02/01/18 19:23 Small incision made with the point of the #11 blade. Then I used the hemostat to spread the skin wound open further. About a large droplet pus came out of each of the incision sites. Rinsed with some saline. No packing placed. Adult Front & Back picture: 1 - 2 small raised swollen, tender, fluctuant spots found in the inner right thigh and incised and drained. Discharge - Discharge Clinical Impression: Back pain, Viral illness, Abscess of right thigh, Encounter for incision and drainage procedure Condition: Stable Disposition: HOME, SELF-CARE Additional Instructions: LOW BACK PAIN: Three out of every four people will have an episode of disabling back pain during their lifetime. Most commonly the pain is due to straining of the muscles and ligaments in the low back. Usual treatment includes: (1) Rest on a firm surface. Avoid lying on your stomach. (2) Ice pack the painful area. After a few days, gentle heat may be used intermittently to relax the area, or ice packs can be continued. (3) Medication may be needed -- muscle relaxers and antiinflammatory medicines are commonly used. (4) As the back improves, exercises are prescribed to strengthen the back and abdominal muscles. Your doctor will advise you on the proper care for your back at each stage in your recovery. You may be better in a few days -- or healing may take several weeks. If new symptoms of a "herniated disc" (radiation of pain, numbness, or tingling down the back of the leg or weakness in the leg) occur, you should be re-examined. Further testing may be necessary. NORMAL EXAM AND WORKUP: At this time, your examination and workup show no significant abnormality. No significant abnormal physical findings were noted. All laboratory, EKG, and imaging (x-ray, CT scans, ultrasound) studies that were ordered show no significant abnormality. Although your examination and all studies that were ordered showed no significant abnormal finding, there are no examinations and no studies that are 100% accurate. There is always the possibility that some abnormality could exist and not be detected with physical examination or within the limits and capabilities of laboratory and other studies. You should return or follow up as you were instructed on your visit today for further evaluation if your symptoms do not resolve. Ibuprofen Ibuprofen is an excellent, safe drug for pain control. In addition, it has potent antiinflammatory effects which are beneficial, especially in the treatment of injuries, arthritis, or tendonitis. It's best to take ibuprofen with food. Persons with ulcer disease or allergy to aspirin should notify their physician of this before taking ibuprofen. Take the medication exactly as prescribed. Don't take additional doses unless instructed to do so by your doctor. If you develop wheezing, shortness of breath, hives, faintness, stomach pain, vomiting, or dark black stools, return for re-evaluation at once. ORAL NARCOTIC MEDICATION: You have been given a prescription for pain control. This medication is a narcotic. It's best taken with food, as nausea can result if taken on an empty stomach. Don't operate machinery or drive within six hours of taking this medication. Do not combine this medicine with alcohol, or with any medication which can cause sedation (such as cold tablets or sleeping pills) unless you get permission from the physician. Narcotics tend to cause constipation. If possible, drink plenty of fluids and eat a diet high in fiber and fruits. Please be aware that prescription narcotics also have the potential for abuse. People become addicted to these medications because of the general sense of wellbeing that they induce. This feeling along with a significant reduction in tension, anxiety, and aggression provides a stimulating seductive quality to these drugs. Once your pain is under control, we encourage you to discard your unused narcotics. ABSCESS: You have an abscess (boil). This a pus-forming infection, usually due to staph. Some boils may be left to drain on their own, but most require lancing. From the time the tender lump first appears, it may be three or four days before the abscess is ready to kirill. Local heat and rest help at this stage of treatment. An antibiotic may prevent spread of the infection. Once the abscess is opened, packing may be placed into it. This is done so pus is not sealed inside by premature closure of the cavity. The packing will be removed at your follow-up visit or you may be advised to remove it yourself at home. Sometimes this packing must be replaced a few times during healing. The wound will heal with surprisingly little scar. Depending on the size and location of an abscess, healing can take one to four weeks. You may shower and wash the area around the incision site two or three times a day. Antibiotics may be prescribed, but are usually not necessary after an abscess has been drained. If you develop fever, chills, worsening pain, or increasing swelling in the area, call the doctor or return immediately. POST INCISION AND DRAINAGE: You have had an incision made to allow drainage of an abscess. The incision must remain open so that pus and debris can drain from the wound. If the abscess cavity is large, packing is placed. This keeps the tissues from collapsing and trapping pus inside, while the body shrinks the cavity. The packing may need to be replaced every day or two. The physician will instruct you on the packing. Keep a bulky dressing over the area. Replace it if it becomes saturated with blood or pus. Do not disturb the packing (if present). You may shower and cleanse the area with gentle soap and warm water two or three times a day. Local warmth may be soothing, and may promote faster healing. Return if you develop high fever or chills, or if you note spreading redness, increasing swelling, or increasing tenderness. MRSA CELLULITIS: You have an infection of your skin and underlying soft tissues called cellulitis. This is due to bacteria, which can enter through any break in the skin, or even through an irritated hair follicle. Untreated, cellulitis will usually worsen and may form an abscess which requires draining. Although many bacterial organisms can cause cellulitis and abscess formations, the most likely bacteria is Methicillin-Resistant Staph Aureus, or MRSA for short. Antibiotics are required. Usually, warm packs or warm soaks, and elevation of the infected area are recommended. You should start getting better within 24 to 36 hours. Most infections respond quickly to the right medication. Follow-up care is important, however, to check for abscess (boil) formation, unsuspected foreign body, or resistant infection. If you develop fever, chills, or if the area of infection is becoming rapidly more swollen or painful, call the doctor at once. DOXYCYCLINE: Doxycycline (Vibramycin, Doryx) is an antibiotic of the tetracycline family. This type of drug is useful for infections of the respiratory tract and genital tract, and is sometimes used for intestinal infections. Unlike most tetracyclines, doxycycline can be taken with food. It is longer acting, and (usually) less prone to side effects than regular tetracycline. Tetracycline antibiotics can stain immature teeth and SHOULD NOT BE TAKEN BY CHILDREN, NURSING MOTHERS, OR WOMEN. Tetracyclines can make you more prone to sunburn. Abdominal cramping, nausea, and diarrhea are occasional side effects. Women may experience vaginal yeast infections. Call the doctor at once if you develop hives, itching, shortness of breath , or lightheadedness. photo print specialist the warm water from the shower or soak in the warm water in a tub for 5 -10 minutes at least a couple times a day for the next couple of days. FOLLOW-UP CARE: If you have been referred to a physician for follow-up care, call the physician s office for an appointment as you were instructed or within the next two days. If you experience worsening or a significant change in your symptoms, notify the physician immediately or return to the Emergency Department at any time for re-evaluation. Prescriptions: Doxycycline Hyclate 100 mg PO BID #10 capsule Oxycodone HCl/Acetaminophen [Percocet 5-325 mg Tablet] 1 tab PO Q4H PRN #8 tablet PRN Reason: Referrals: RAJ RANDOLPH MD [ACTIVE STAFF] - Follow up as needed
[2018-02-01 14:24] VITALS: BP 111/55
== END 2018-02-01 14:24 | disposition home or self-care (01) ==
LOC: ER 10:04
DX: L02.415 Cutaneous abscess of right lower limb (principal); M54.5 Low back pain; B34.9 Viral infection, unspecified; R10.9 Unspecified abdominal pain; R68.83 Chills (without fever); R61 Generalized hyperhidrosis; R11.2 Nausea with vomiting, unspecified; Z87.892 Personal history of anaphylaxis; F17.200 Nicotine dependence, unspecified, uncomplicated
CPT/HCPCS: 99284; 36415; 87086; 87070; 87205; 83690; 84703; 85025; 81025; 87075; 87077; 80053; 81001; 10061; J3490 ×2